=== PATIENT | male | born 1940 | race Caucasian/White ===

== ENCOUNTER 2017-09-01 08:40 | Day surgery (SDC) | payer MEDICARE, SELFPAY ==
--- NOTE | 2017-09-01 | PATH_ITS ---
[facility] Accession Number: [id number] . 01 Material submitted: . CECUM POLYP . 02 Diagnosis: Cecal Polyp: Tubular adenoma. MRV/09/06/2017 . 02 Electronically signed: . Sai Parker MD, PhD, Pathologist NPI- [id number] . 01 Gross description: . CECUM POLYP: Received in formalin is 1 fragment(s) of avalos, soft tissue measuring 0.4 x 0.3 x 0.2 cm submitted entirely in 1 cassette(s) /TRC /TRC . 02 Pathologist provided ICD-10: D12.0 . 02 CPT . 370276 Performed at: 01 [facility] [address], [place], [place] [id number] MD Yordan Carson MD Phone: [phone] Performed at: 02 [facility] [address] [employer] [place] [employer], [place] [id number] MD Ray Mcneal MD Phone: [phone]
[2017-09-01 09:09] VITALS: BP 137/90; PULSE 76; RESP 16; TEMP 36.6; O2SAT 100; BMI 23.7
[2017-09-01] MEDS: SODIUM CHLORIDE 0.9% 1,000 ML 200 ML IV (09:17)
--- NOTE | 2017-09-01 10:22 | P.HP_ITS ---
History of Present Illness Chief complaint: 90903 SCREENING COLONOSCOPY Narrative: Kwame Dowling is a 77 year old male who presents for screening colonoscopy. His last colonoscopy was 5 years ago and he and his both report that he had polyps removed at that time. He denies any problems or symptoms related to the function of the GI tract. He reports that he and his live half the year is on now and half the year here and his weight is usually stable. He just returned from a cruise through the [facility] a reports he gained 7 lb on a cruise but quickly lost once he returned. Patient History Family & Social History Family History: Reviewed 09/01/17 by Hyun Shah MD Meds Home Medications Medication Instructions Recorded Confirmed Type Doxazosin Mesylate (DOXAZOSIN) 4 mg PO QDAY #0 09/22/11 History levothyroxine [Synthroid] 0.05 mg PO QDAY #0 09/22/11 History ACETAMINOPHEN (#TYLENOL) 500 mg PO PRN #0 09/27/11 History [AMBIEN] 10 mg PO PRN #0 09/27/11 History [FLUTICASONE PROPIONA] 50 mcg PO QDAY #0 09/27/11 History atorvastatin [Lipitor] 10 mg PO HS #0 09/27/11 History aspirin 81 mg PO DAILY 09/01/17 09/01/17 History metoprolol succinate 25 mg PO DAILY 09/01/17 09/01/17 History Allergies Allergy/AdvReac Type Severity Reaction Status Date / Time No Known Drug Allergies Allergy Verified 09/01/17 09:03 Review of Systems Review of Systems All systems reviewed & are unremarkable except as noted in HPI and below Exam Vital Signs (past 8 hours): Vital Signs - 8 hr 3 09/01/17 09:09 Temperature 97.8 F Pulse Rate 76 Respiratory Rate 16 Blood Pressure 137/90 H Pulse Oximetry 100 Pulse Oximetry 100 Oxygen Delivery Method Room Air Narrative Exam Narrative: Very pleasant gentleman in no distress HEENT: Normocephalic and atraumatic, pupils equal round reactive to light accommodation with anicteric sclerae Lungs: Clear to auscultation bilaterally Heart: Regular rate and rhythm without murmur Abdomen: Soft, nontender, active bowel sounds Extremities warm and well perfused. Assessment & Plan Plan: Plan: Very pleasant in generally healthy gentleman here for a screening colonoscopy. We discussed the risks and benefits of the procedure the patient has expressed desire to continue
--- NOTE | 2017-09-01 10:54 | PM.OP.1 ---
Operative Date/Time/Diagnoses - Date of procedure: 09/01/17 Time of procedure: 10:54 Pre-op diagnosis: Personal history of colon polyps Screening colonoscopy Post-op diagnosis: same Procedure & Clinicians Procedure: Screening colonoscopy Same procedure as scheduled: Yes Indications: Last colonoscopy 5 years ago. Benign polyps were found Surgeon: Hyun Shah Click Yes if Unassisted: Yes Anesthesia Type: Sedation (Versed 7 mg; fentanyl 250 mcg) Operative Notes Findings: 1. Excellent prep 2. A single 2-3 mm sessile polyp at the cecum-removed with cold forceps and submitted for pathology 3. Profound diverticulosis with large and small tics and false passages extending from 20 cm to the splenic flexure-most concentrated disease at the junction of the descending sigmoid colon 4. Otherwise normal mucosa 5. Grade 1 internal hemorrhoid Closure Type: not applicable Specimen(s): none sent Tourniquet time (min): 1 Procedure in detail: After obtaining informed consent, the patient was brought to the GI suite and placed in the left lateral decubitus position on the examination table. After placement of appropriate monitors, the patient was given incremental doses of Versed and Fentanyl until an appropriate level of sedation was achieved. A time out was held per SCOAP protocol. A digital rectal examination was performed and did not reveal any masses or obstructing lesions. The colonoscope was gently passed into the patient's anus and the entire colon navigated to the level of the cecum with minimal difficulty. Once in the cecum, the scope was withdrawn being sure to go before and beyond all mucosal folds and prominences and get an excellent examination. The findings are noted above. At the level of the rectal vault, the scope was retroflexed and the internal anal canal was examined. The scope was straightened and air aspirated from the colon. The instrument was removed from the patient's body and the procedure was concluded. The patient was allowed to awaken from sedation without difficulty and taken to the post-anesthesia care unit in good condition. Total sedation time 21 min Total withdrawal time 11 min Complications: none Condition: stable Disposition: PACU Plan for aftercare: 1. Discharge to home 2. Plan for next colonoscopy in 5 years or as clinically indicated
[2017-09-01] MEDS: fentaNYL 250 MCG/5 ML INJ IV (10:57)
[2017-09-01] MEDS: MIDAZOLAM 5 MG/5 ML VIAL IV (10:57)
[2017-09-01 11:01] VITALS: BP 133/91; PULSE 73; RESP 12; TEMP 36.6; O2SAT 95
[2017-09-01 11:06] VITALS: BP 123/92; PULSE 78; RESP 14; O2SAT 95
[2017-09-01 11:11] VITALS: BP 128/98; PULSE 80; RESP 15; O2SAT 94
[2017-09-01 11:12] VITALS: TEMP 37.1
[2017-09-01 11:21] VITALS: BP 135/96; PULSE 76; RESP 16; TEMP 36.3; O2SAT 98
== END 2017-09-01 11:34 | disposition home or self-care (01) ==
PROVIDERS: Family Provider Internal Medicine; PCP Internal Medicine; Visit Provider Surgery
PROC: 0DJD8ZZ Inspection of Lower Intestinal Tract, Via Natural or Artificial Opening Endoscopic (ICD-10-PCS; CPT 45378; principal; 2017-09-01 09:45)
DX: Z12.11 Encounter for screening for malignant neoplasm of colon (principal); K57.30 Diverticulosis of large intestine without perforation or abscess without bleeding; K64.0 First degree hemorrhoids; Z86.010 Personal history of colon polyps; D12.0 Benign neoplasm of cecum
CPT/HCPCS: 45380; 88305; 99152; J2250; J3010

== ENCOUNTER → 2017-12-02 10:59 | Outpatient (CLI) | payer MEDICARE, SELFPAY ==
[2017-12-02 12:59] LABS: Prostate Specific Antigen 0.224 ng/mL (0.10-4.00)
[2017-12-02 13:01] LABS: Testosterone 14.8 ng/dL (71.8-623)
== END ==
PROVIDERS: PCP Internal Medicine; Visit Provider Urology
DX: C61 Malignant neoplasm of prostate (principal)
CPT/HCPCS: 36415; 84153; 84403

== ENCOUNTER → 2018-07-04 10:47 | Outpatient (CLI) | payer MEDICARE, SELFPAY ==
[2018-07-04 12:44] LABS: Prostate Specific Antigen 0.416 ng/mL (0.10-4.00)
== END ==
PROVIDERS: Family Provider Internal Medicine; Visit Provider Urology
DX: C61 Malignant neoplasm of prostate (principal)
CPT/HCPCS: 36415; 84153; 84403

== ENCOUNTER → 2018-07-17 09:53 | Outpatient (CLI) | payer MEDICARE, SELFPAY ==
[2018-07-17 11:14] LABS: Alanine Aminotransferase 30 IU/L (21-72); Aspartate Aminotransferase 26 IU/L (17-59); BUN Creatinine Ratio 17.8 (6-22); Blood Urea Nitrogen 16 mg/dL (9-20); Calcium 9.3 mg/dL (8.4-10.2); Carbon Dioxide 25 mmol/L (22-32); Chloride 104 mmol/L (98-107); Cholesterol 131 mg/dL (140-199); Estimated Glomerular Filt Rate > 60.0 mL/min (>60); Glucose 105 mg/dL (80-110); HDL Cholesterol 39 mg/dL (40-60); HEMOLYSIS < 15 (0-50); LDL Cholesterol Calculated 74 mg/dL (<100); Potassium 4.4 mmol/L (3.4-5.1); Sodium 136 mmol/L (137-145); Triglycerides 89 mg/dL (35-150)
[2018-07-17 12:36] LABS: TSH w/ Reflex to FT4 0.73 uIU/mL (0.47-4.68)
== END ==
PROVIDERS: Visit Provider Internal Medicine
DX: E03.9 Hypothyroidism, unspecified (principal); E78.00 Pure hypercholesterolemia, unspecified; I10 Essential (primary) hypertension
CPT/HCPCS: 36415; 80048; 80061; 84443; 84450; 84460

== ENCOUNTER → 2018-12-20 12:58 | Outpatient (CLI) | payer MEDICARE, SELFPAY ==
[2018-12-20 14:20] LABS: Prostate Specific Antigen 0.546 ng/mL (0.10-4.00)
== END ==
PROVIDERS: Visit Provider Urology
DX: C61 Malignant neoplasm of prostate (principal); Z90.79 Acquired absence of other genital organ(s); Z92.3 Personal history of irradiation; R39.198 Other difficulties with micturition
CPT/HCPCS: 36415; 84153

== ENCOUNTER → 2019-07-02 09:48 | Outpatient (CLI) | payer MEDICARE, SELFPAY ==
[2019-07-02 11:19] LABS: Prostate Specific Antigen 0.656 ng/mL (0.10-4.00)
== END ==
PROVIDERS: PCP Internal Medicine; Referring Provider Urology; Visit Provider Urology
DX: C61 Malignant neoplasm of prostate (principal)
CPT/HCPCS: 36415; 84153

== ENCOUNTER → 2019-09-28 07:31 | Outpatient (CLI) | payer MEDICARE, SELFPAY ==
[2019-09-28 08:37] LABS: Alanine Aminotransferase 16 IU/L (<50); Albumin 3.8 g/dL (3.5-5.0); Albumin Globulin Ratio 1.4 (1.0-2.8); Alkaline Phosphatase 68 U/L (38-126); Aspartate Aminotransferase 24 IU/L (17-59); BUN Creatinine Ratio 22.5 (6-22); Bilirubin Total 0.8 mg/dL (0.2-1.3); Blood Urea Nitrogen 20 mg/dL (9-20); Calcium 9.4 mg/dL (8.4-10.2); Carbon Dioxide 27 mmol/L (22-32); Chloride 108 mmol/L (98-107); Cholesterol 148 mg/dL (140-199); Estimated Glomerular Filt Rate > 60.0 mL/min (>60); Globulin 2.7 g/dL (1.7-4.1); Glucose 119 mg/dL (80-110); HDL Cholesterol 40 mg/dL (40-60); HEMOLYSIS < 15 (0-50); LDL Cholesterol Calculated 87 mg/dL (<100); Sodium 139 mmol/L (137-145); Total Protein 6.5 g/dL (6.3-8.2); Triglycerides 107 mg/dL (35-150)
[2019-09-28 09:09] LABS: TSH w/ Reflex to FT4 1.06 uIU/mL (0.47-4.68)
== END ==
PROVIDERS: PCP Internal Medicine; Referring Provider Internal Medicine; Visit Provider Internal Medicine
DX: I10 Essential (primary) hypertension (principal); E78.00 Pure hypercholesterolemia, unspecified
CPT/HCPCS: 36415; 80053; 80061; 84443

== ENCOUNTER → 2019-12-28 10:43 | Outpatient (CLI) | payer MEDICARE, SELFPAY | PROVIDERS: PCP Internal Medicine; Referring Provider Urology; Visit Provider Urology | DX: C61 Malignant neoplasm of prostate (principal) | CPT/HCPCS: 36415; 84153 ==

== ENCOUNTER → 2020-01-02 08:34 | Outpatient (CLI) | payer MEDICARE, SELFPAY ==
--- NOTE | 2020-01-02 08:38 | DI.RAD.S_ITS ---
PROCEDURE: XR LUMBAR SPINE 2-3V INDICATIONS: RIGHT SIDED LOW BACK PAIN W/O SCIATICA TECHNIQUE: 3 views of the lumbar spine were acquired. COMPARISON: [facility], , CHEST 2 VIEW, 09/10/2011, 10:40. FINDINGS: Bones: 5 dow-agl-[id number] vertebrae are present. There is trace retrolisthesis of L1 on L2, L2 on L3, L3 on L4, L5 on S1. Anterior wedge deformity appearing chronic measuring approximately 50% is present at L1, unchanged. Bridging T12-L1 anterior osteophytes are present. Severe disc and foraminal narrowing is noted at L5-S1, severe foraminal narrowing is noted at L1-L2, L2-3, moderate L4-5. No suspicious bony lesions. Soft tissues: Overlying bowel gas pattern is normal. No suspicious soft tissue calcifications. IMPRESSION: Multilevel degenerative changes as above. Dictated by: Corine Torres M.D. on 01/02/2020 at 15:05 Approved by: Corine Torres M.D. on 01/02/2020 at 15:09
== END ==
PROVIDERS: PCP Internal Medicine; Referring Provider Internal Medicine; Visit Provider Internal Medicine
DX: M54.5 Low back pain (principal); M47.816 Spondylosis without myelopathy or radiculopathy, lumbar region
CPT/HCPCS: 72100

== ENCOUNTER → 2020-01-21 13:52 | Outpatient (CLI) | payer MEDICARE, SELFPAY ==
[2020-01-22 10:24] LABS: COVID19 Sendout Not Detected (Not Detect)
== END ==
PROVIDERS: PCP Internal Medicine; Visit Provider Physician Assistant
DX: Z11.59 Encounter for screening for other viral diseases (principal)
CPT/HCPCS: 87635

== ENCOUNTER → 2020-07-11 10:11 | Outpatient (CLI) | payer MEDICARE, SELFPAY ==
[2020-07-11 12:22] LABS: Prostate Specific Antigen 4.36 ng/mL (0.10-4.00)
== END ==
PROVIDERS: PCP Internal Medicine; Referring Provider Urology; Visit Provider Urology
DX: C61 Malignant neoplasm of prostate (principal)
CPT/HCPCS: 36415; 84153

== ENCOUNTER → 2020-07-18 10:25 | Outpatient (CLI) | payer MEDICARE, SELFPAY ==
[2020-07-18 11:17] LABS: BUN Creatinine Ratio 14.7 (6-22); Blood Urea Nitrogen 14 mg/dL (9-20); Estimated Glomerular Filt Rate > 60.0 mL/min (>60)
== END ==
PROVIDERS: PCP Internal Medicine; Referring Provider Urology; Visit Provider Urology
DX: C61 Malignant neoplasm of prostate (principal)
CPT/HCPCS: 36415; 82565; 84520

== ENCOUNTER → 2020-07-21 08:58 | Outpatient (CLI) | payer MEDICARE, SELFPAY ==
--- NOTE | 2020-07-21 | DI.CT.S_ITS ---
PROCEDURE: CT CHEST ABD PEL W CON INDICATIONS: Prostate cancer TECHNIQUE: After the administration of oral and intravenous contrast, 5 mm thick sections acquired from the lung apices to the symphysis. 5 mm coronal and sagittal reformats were performed, with additional 7 mm coronal MIP reformats through the lungs. For radiation dose reduction, the following was used: automated exposure control, adjustment of mA and/or kV according to patient size. COMPARISON: [facility], CR, CHEST 2 VIEW, 09/10/2011, 10:40. [facility], MR, PELVIS W&WO CONTRAST, 07/31/2014, 18:53. FINDINGS: CHEST: Lungs: Upper lobe predominant emphysema noted. Multiple bilateral pulmonary nodules, subcentimeter in size including 3 mm nodule seen in the left lung base on image 268/2, 6 mm nodule seen in the right upper lobe image 115/2 5 mm nodule seen within the left upper lobe image 152/2, Please see the montage image for detailed locations and image/series numbers. Scattered subsegmental atelectasis and/or scarring. No focal consolidation. Airway thickening in keeping with nonspecific bronchitis and/or reactive airways disease. Pleura: No pleural effusions or pneumothorax. Airway thickening in keeping with nonspecific bronchitis and/or reactive airways disease. Mediastinum: Heart size is normal. Coronary artery calcifications are present. No pericardial effusion. Lymph nodes: Normal. Thyroid gland: Large hypodense nodule involving the left lobe of the thyroid which measures 4.2 x 3.6 cm, better assessed with dedicated ultrasound if clinically warranted. Mild enlargement of the ascending thoracic aorta measuring approximately 3.8 cm, and there are scattered vascular calcifications. Pulmonary arteries: Normal. Esophagus: Normal.. ABDOMEN: Solid organs: Hepatic steatosis. Gallbladder: Negative. Bile ducts: Normal Pancreas: Normal Spleen: Normal Adrenal glands: Normal No hydronephrosis. Bilateral renal cysts with grossly simple appearance measuring up to 6 cm in diameter on image 74/4 and up to 2.2 cm on the left image 84/4. The ureters appear decompressed. Peritoneum and bowel: Stomach: Normal Bowel: Normal No free fluid or air. Colonic diverticulosis is seen without evidence of acute complication. Abdominal nodes: Normal Aorta and IVC: Normal in size. Ventral wall: Normal PELVIS: Genitourinary: Increased intraluminal attenuation is present in the bladder which is moderately distended. There is a layering dependent appearance. Prostate surgically absent. Few shotty pelvic lymph nodes, including 5 mm left external iliac lymph node on image 104/4. Inguinal: Normal Spondylytic changes and facet arthropathy. L1 mild compression fracture which appears chronic. Nonspecific subcentimeter focal sclerosis involving the left sacral ala image 100/4. IMPRESSION: Multiple bilateral subcentimeter pulmonary nodules as detailed above. Recommend continued close surveillance to exclude early pulmonary metastases given the absence of prior studies. Prominent increased attenuation seen within the bladder, with layering dependent appearance. This could represent blood products although cannot entirely exclude mass or underlying neoplasm. Please correlate clinically and with cystoscopic findings as necessary. Additional chronic and incidental findings as above. Dictated by: Micky Velasquez M.D. on 07/21/2020 at 11:28 Approved by: Micky Velasquez M.D. on 07/21/2020 at 12:11
== END ==
PROVIDERS: PCP Internal Medicine; Referring Provider Urology; Visit Provider Urology
DX: C61 Malignant neoplasm of prostate (principal); R91.8 Other nonspecific abnormal finding of lung field; J43.9 Emphysema, unspecified; E04.1 Nontoxic single thyroid nodule; I77.89 Other specified disorders of arteries and arterioles; K76.0 Fatty (change of) liver, not elsewhere classified; N28.1 Cyst of kidney, acquired; K57.90 Diverticulosis of intestine, part unspecified, without perforation or abscess without bleeding
CPT/HCPCS: 71260; 74177; Q9967

== ENCOUNTER → 2020-07-23 09:42 | Outpatient (CLI) | payer MEDICARE, SELFPAY ==
--- NOTE | 2020-07-23 09:46 | DI.NM.S_ITS ---
PROCEDURE: PR BONE SCAN WHOLE BODY RADIOPHARMACEUTICAL: 21.1 mCi Tc-99m MDP IV. INDICATIONS: Prostate cancer TECHNIQUE: Delayed whole-body scintigrams were obtained approximately 3-4 hours after intravenous injection of radiotracer. Anterior and posterior views were acquired from vertex to feet. Additional left and right oblique views of the pelvis were obtained. COMPARISON: [facility], PR, BONE SCAN WHOLE BODY, 12/21/2006, 9:27. [facility], CT, CT CHEST ABD PEL W CON, 07/21/2020, 9:55. FINDINGS: No lesions are identified in skull, sternum, clavicles, scapulae, ribs, bony pelvis, and visualized shafts of the long bones. There is low level increased uptake in cervical, thoracic and lumbar spine with distribution indistinguishable from degenerative disc and facet disease; early metastasis to spine could be obscured by degenerative changes. There are foci of increased periarticular activity involving shoulders, knees, left ankle and foot, compatible with degenerative/arthritic changes. Uptake in the right knee is more intense at new since 2006. IMPRESSION: 1. No definitive scintigraphic findings to suggest osseous metastasis. 2. Foci of increased periarticular activity in shoulders, knees, left ankle and foot are most likely degenerative in nature. Uptake in right knee is more intense and new since the last bone scan. Recommend radiographic correlation. Dictated by: Bayron Constantino M.D. on 07/23/2020 at 13:40 Approved by: Bayron Constantino M.D. on 07/23/2020 at 15:26
== END ==
PROVIDERS: PCP Internal Medicine; Referring Provider Urology; Visit Provider Urology
DX: C61 Malignant neoplasm of prostate (principal)
CPT/HCPCS: 78306; A9503

== ENCOUNTER → 2020-08-01 10:54 | Outpatient (CLI) | payer MEDICARE, SELFPAY ==
[2020-08-01 12:49] LABS: Alanine Aminotransferase 33 IU/L (<50); Albumin 4.1 g/dL (3.5-5.0); Albumin Globulin Ratio 1.4 (1.0-2.8); Alkaline Phosphatase 93 U/L (38-126); Aspartate Aminotransferase 39 IU/L (17-59); BUN Creatinine Ratio 21.1 (6-22); Bilirubin Total 0.7 mg/dL (0.2-1.3); Blood Urea Nitrogen 20 mg/dL (9-20); Calcium 9.7 mg/dL (8.4-10.2); Carbon Dioxide 27 mmol/L (22-32); Chloride 105 mmol/L (98-107); Cholesterol 158 mg/dL (140-199); Estimated Glomerular Filt Rate > 60.0 mL/min (>60); Globulin 2.9 g/dL (1.7-4.1); Glucose 108 mg/dL (80-110); HDL Cholesterol 46 mg/dL (40-60); HEMOLYSIS < 15 (0-50); LDL Cholesterol Calculated 85 mg/dL (<100); Potassium 4.3 mmol/L (3.4-5.1); Sodium 140 mmol/L (137-145); Triglycerides 135 mg/dL (35-150)
[2020-08-01 13:19] LABS: TSH w/ Reflex to FT4 0.56 uIU/mL (0.47-4.68)
== END ==
PROVIDERS: PCP Internal Medicine; Referring Provider Internal Medicine; Visit Provider Internal Medicine
DX: I10 Essential (primary) hypertension (principal); E03.9 Hypothyroidism, unspecified; E78.00 Pure hypercholesterolemia, unspecified
CPT/HCPCS: 36415; 80053; 80061; 84443

== ENCOUNTER → 2020-08-05 08:57 | Outpatient (CLI) | payer MEDICARE, SELFPAY ==
--- OUTSIDE RECORDS SUMMARY | 2020-08-04 12:17 | XMS_ITS | Referral Summary ---
:[address] [facility] Address [address] [place] [address] Care Team Providers Name Role Phone Emily Barry Primary Care Provider Reason for Referral Consultation (Routine) Status Reason Specialty Diagnoses / Referred By Referred To Procedures Contact Contact Authorized Specialty Oncology Diagnoses Prostate cancer (CMS/HCC) [facility] Services Required Nasima Montes MD [address] [place] [address] [place], [place] [address] [address] [place], Phone: [facility] Scheduling Instructions [facility] Electronically signed by Nasima Otoole MD at Reason for Visit Reason Onset Date Comments Test Results 07/28/2020 Encounter Details Date Type Department Care Team Description 07/28/[address] [facility] Nasima Casas MD Test Results Urology [place] [address] [address] [facility] [address] [place] [address] [place], [place] [phone] Allergies No Known Active Allergiesdocumented as of this encounter (statuses as of 07/29/2020) Medications Medication Sig Dispensed Refills Start Date End Date Status atorvastatin (LIPITOR) 0 07/31/2012 Active 10 mg tablet metoprolol tartrate 50 mg 0 Active (LOPRESSOR) 25 mg tablet levothyroxine 0 Active (SYNTHROID) 125 mcg tablet traZODone (DESYREL) 50 as needed. 5 12/30/2016 Active mg tablet aspirin 81 mg EC tablet daily 0 Active zolpidem (AMBIEN) 10 mg daily 0.5 tab 0 5 Active tablet NEEDED leuprolide acetate as directed 0 Active (LUPRON DEPOT IM) documented as of this encounter (statuses as of 07/29/2020) Active Problems Problem Noted Date Microscopic hematuria 01/09/2018 Lower urinary tract symptoms (LUTS) 07/20/2017 History of radical retropubic prostatectomy 01/12/2017 History of external beam radiation therapy 01/12/2017 Erectile dysfunction 07/22/2015 Prostate cancer 08/16/2011 documented as of this encounter (statuses as of 07/29/2020) Resolved Problems Problem Noted Date Resolved Date Nocturia 01/12/2017 07/20/2017 documented as of this encounter (statuses as of 07/29/2020) Immunizations Name Administration Dates Next Due FLU High Dose 65+ (Fluzone) 12/13/2017, 12/17/2016, 12/13/19 11 Influenza, Quadrivalent 12/25/2012, 12/31/2009, 12/23/2008, 01/04/2008, 01/17/2007, 01/19/2006 Influenza, Seasonal, Injectable 12/20/2015, 12/07/2014, 05/2013 Live Zoster (Zostavax) 01/10/2008 Pneumococcal, Unspecified 01/21/2014 Recombinant Zoster (Shingrix) 10/06/2017, 07/10/2017 TD Preservative Free (Generic) 07/30/2004 Tdap (Boostrix,Adacel) 07/13/2010 documented as of this encounter Social History Tobacco Use Types Packs/Day Years Used Date Former Smoker Cigarettes 0.5 30 Quit: 2004 Smokeless Tobacco: Former User Alcohol Use Drinks/Week oz/Week Comments Yes wine 2x year Alcohol Habits Answer Date Recorded How often do you have a drink containing alcohol? Monthly or less 01/08/2019 How many drinks containing alcohol do you have on a 1 or 2 01/08/2019 typical day when you are drinking? How often do you have six or more drinks on one Never 01/08/2019 occasion? Sex Assigned at Date Recorded Not on file Job Start Date Occupation Industry Not on file Not on file Not on file documented as of this encounter Miscellaneous Notes Telephone Encounter - CharlyAlexandria - 07/29/2020 5:01 PM PDTSummary: Referral faxed to [facility] The referral has been faxed to [facility] at [phone] signed by Alexandria Gricelda Charly at 07/29/2020 5:02 PM PDT Telephone Encounter - Patsy Corey - 07/29/2020 4:00 PM PDTPatients spouse called statng she contacted cancer care center at [facility] and they have not yet received the referral from our office. Confirmed she just spoke with our office regarding this 20minutes prior, and this would be faxed as soon as we have a chance. She provided their fax number [phone]. ddendum Note - Rut Smith RN - 07/29/2020 3:31 PM PDT Addended by: RUT SMITH on: 07/29/2020 03:31 PM Modules accepted: Orders elephone Encounter - Rtu Smith RN - 07/29/2020 3:30 PM PDTCalled patient and his back- ok per auth to share. Let them know the results of the CT scan andDr. Otoole's recommendations. They would like [place] go to [place]ology [place]. Referral placed. Changed office visit appointment on 08/11 to a cystoscopy. All questions answered. elephone Encounter - Farzaneh Burr - 07/29/2020 2:40 PM PDTRhonda called back and they are home all day. [phone] signed by Farzaneh Burr at 07/29/2020 2:41 PM PDTTelephone Encounter - Rut Smith RN - 07/29/2020 1:30 PM PDTLeft message to call back. elephone Encounter - Rut Smith RN - 07/29/2020 1:19 PM PDTHi Niesha, ?? Please, let him know I've reviewed his CT images and the report. ?? He has a mass on his thyroid, small lung nodules, visible pelvic lymph nodes--I'd like him referred to medical oncology. ?? The bladder findings appear likely consistent with swirling of contrast dye in the urine, though I do recommend cystoscopy to ensure the bladder is normal. ?? Thank you, Sandra Telephone Encounter - Estevan Mata - 07/28/2020 10:42 AM PDTPatients called asked that they be called with results from patients CT and Bone Scan. Said they would like them before patients appointment on 08/11/20 because they are trying to make plans for there grandsons graduation but would like the results first. documented in this encounter Plan of Treatment Upcoming Encounters Date Type Specialty Care Team Description 08/11/2020 Office Visit Urology Micaela Otoole MD [address] [place] [address] [phone] Scheduled Referrals Name Type Priority Associated Diagnoses Order S chejennifer XTRNL Referral to Outpatient Referral Routine Prostate cancer Ordered: Oncology (CMS/HCC) 07/29/2020 documented as of this encounter Visit Diagnoses Diagnosis Prostate cancer (CMS/HCC) - Primary Malignant neoplasm of prostate documented in this encounter Insurance Payer Benefit Plan / Subscriber ID Effective Dates Phone Addre ss Type Group MEDICARE MEDICARE PART A [id number] 2005-Present AND B [facility] SUPP [id number] 2017-Present SUPP documented as of this encounter Advance Directives Documents on File Type Date Recorded Patient Strain Technician Explanati on Advance Directives and Living Will
--- NOTE | 2020-08-05 08:58 | DI.US.S_ITS ---
PROCEDURE: US THYROID COMPARISON: [facility], [place], [place] BONE SCAN WHOLE BODY, 07/23/2020, 12:40. [facility], CT, CT CHEST ABD PEL W CON, 07/21/2020, 9:55. [facility], [place], THYROID, 07/31/2010, 12:24. INDICATIONS: LEFT THYROID NODULE FINDINGS: The right thyroid lobe measures 1.2 x 1.1 x 4.5 cm, normal. The left thyroid lobe is enlarged by a dominant mass, measuring overall 3.2 x 4.1 x 6.2 cm. The mass present on the left has been seen on prior CT scanning and measures up to 2.5 x 4.2 x 5.2 cm. There is also a small right isthmus nodule measuring 2 x 3 x 6 mm. The right isthmus nodule was analyzed and yields 3 points for categorization, and given small size no additional follow-up is recommended. Ti-Rads 3 category. The large left thyroid nodule was analyzed, and yields 3 points for categorization, and given large size FNA biopsy is recommended. Ti-Rads 3 category. IMPRESSION: The large left thyroid nodule should be biopsied using FNA technique. The small right isthmus nodule requires no biopsy or followup. Dictated by: Thanh Moreno M.D. on 08/05/2020 at 10:47 Approved by: Thanh Moreno M.D. on 08/05/2020 at 10:57
== END ==
PROVIDERS: PCP Internal Medicine; Referring Provider Internal Medicine Hematology & Oncology; Visit Provider Internal Medicine Hematology & Oncology
DX: C61 Malignant neoplasm of prostate (principal); E07.9 Disorder of thyroid, unspecified; E04.1 Nontoxic single thyroid nodule
CPT/HCPCS: 76536

== ENCOUNTER → 2020-08-19 12:51 | Outpatient (CLI) | payer MEDICARE, SELFPAY ==
--- NOTE | 2020-08-19 | PATH_ITS ---
Note [facility] Accession Number: [id number] TESTS RESULT FLAG UNITS REF RANGE LAB Clinician Provided Cytology Information No. of containers..02 Previously Prepared Cytology Slide 35 Unknown Storage/container code(s) LEFT THYROID NODULE DIAGNOSIS: LEFT THYROID NODULE INCONCLUSIVE. BETHES[place] CATEGORY III. ATYPIA OF UNDETERMINED SIGNIFICANCE. COMMENT: The specimen is of moderate cellularity with macrofollicular groups exhibiting atypia in the form of nuclear overlap, slight nuclear irregularity with grooves, and slightly open chromatin. Pathologist ICD10: 01 R89.6 Iva Dominguez MD, Pathologist NPI- [id number] Papi [place], [employer] ([facility]) 01 30 CC, PINK, CLEAR RECIEVED: IN CYTOLYT WITH 6 ALCOHOL FIXED AND 6 QUICK STAINED SLIDES ALSO 1 RNA VIAL WAS RECEIVED FOR FURTHER TESTING. /VDMadhuri 08/20/2020 0550 [facility] FLAG LEGEND: L-Low Normal,H-High Normal,LL-Alert Low,HH-Alert High <-Panic Low,>-Panic High,A-Abnormal,AA-Critical Abnormal Performed at: 01 =Z [facility] [address], [place] [address] Yordan Carson MD, Performed at: 01 [facility] [address], [place], [place] [id number] MD Yordan Carson MD Phone: [phone]
--- NOTE | 2020-08-19 12:53 | DI.US.S_ITS ---
PROCEDURE: US FINE NEEDLE ASPIRATION INDICATIONS: NODULE TECHNIQUE: The indications, alternatives, benefits, risks, and complications of the procedure were explained to the patient. Written informed consent was obtained and placed in the chart. The thyroid region was examined sonographically and a site was chosen for ultrasound guided percutaneous sampling. The skin was prepared and draped in the usual fashion, and anesthetized with 1% lidocaine infiltrated from the skin down to the thyroid gland. Multiple passes were then performed, with contents emptied into an appropriate pathology specimen container. A bandage was applied to the area of access at completion of the study. COMPARISON: None. FINDINGS: Location(s) of lesion(s) sampled: Left lobe [place]: 25 gauge hypodermic needles. Number of passes: 6 Medications: 1% lidocaine for local anaesthesia. Complications: None. IMPRESSION: Successful ultrasound-guided thyroid nodule fine needle aspiration, with cytology results pending. Please see chart below for management recommendations based on cytology results. [facility] ReportingRecommendationsNon-diagnostic* Repeat US-guided FNA, with on-site cytology evaluation if possible. * Repeated non-diagnostic nodules without high suspicion US features: close observation vs surgical consult. * Consider surgery if nodule has high suspicion US features, grows >20% in 2 dimensions on followup, or patient has clinical risk factors for malignancy. Benign* If nodule has high suspicion US features: repeat US and FNA within 12 months. * If nodule has low to intermediate suspicion US features: repeat US at 12-24 months. If nodule grows (20% increase in at least 2 dimensions, with minimal increase of 2 mm or >50% change in volume), or development of new suspicious US features, then repeat FNA or continue followup. * If nodule has very low suspicion US features: followup US at >24 months. Atypia of undetermined significance, follicular lesion of undetermined significanceRepeat FNA, molecular testing, followup US, or surgical consult.Follicular neoplasm, suspicious for follicular neoplasmSurgical consult; also consider molecular testing. Suspicious for malignancySurgical consult.MalignantSurgical consult. Dictated by: Micky Velasquez M.D. on 08/19/2020 at 17:45 Approved by: Micky Velasquez M.D. on 08/19/2020 at 17:45
== END ==
PROVIDERS: PCP Internal Medicine; Referring Provider Internal Medicine Hematology & Oncology; Visit Provider Internal Medicine Hematology & Oncology
DX: E04.1 Nontoxic single thyroid nodule (principal)
CPT/HCPCS: 10005

== ENCOUNTER → 2020-08-21 15:38 | Outpatient (CLI) | payer MEDICARE, SELFPAY ==
--- NOTE | 2020-08-21 15:42 | DI.RAD.S_ITS ---
PROCEDURE: XR CHEST 2V INDICATIONS: Fell striking left chest.Point tender lateral lower rib cage TECHNIQUE: 2 views of the chest were acquired. COMPARISON: [facility], , CHEST 2 VIEW, 09/10/2011, 10:40. FINDINGS: Surgical changes and devices: None. Lungs and pleura: Lungs are clear. No pleural effusions or pneumothorax. Mediastinum: Mediastinal contours are normal. Heart size is normal. Bones and chest wall: No suspicious bony abnormalities. Soft tissues appear unremarkable. IMPRESSION: No acute cardiopulmonary abnormality Dictated by: Rishabh Tyler M.D. on 08/21/2020 at 16:09 Approved by: Rishabh Tyler M.D. on 08/21/2020 at 16:10
--- NOTE | 2020-08-21 15:42 | DI.RAD.S_ITS ---
PROCEDURE: XR RIBS LT 2V INDICATIONS: Fell striking left chest.Point tender lateral lower rib cage TECHNIQUE: PA of the chest and two views of the left ribs were acquired. COMPARISON: None. FINDINGS: Surgical changes and devices: None. Bones and chest wall: No fractures or dislocations. No suspicious bony lesions. Overlying soft tissues appear unremarkable. Lungs and pleura: The visualized lung appears clear. No pleural effusions or pneumothorax are visible. The aorta is tortuous. IMPRESSION: 1. No acute cardiopulmonary abnormality. 2. No left-sided rib fracture. Dictated by: Rishabh Tyler M.D. on 08/21/2020 at 16:10 Approved by: Rishabh Tyler M.D. on 08/21/2020 at 16:12
== END ==
PROVIDERS: PCP Internal Medicine; Referring Provider Specialist; Visit Provider Specialist
DX: S29.8XXA Other specified injuries of thorax, initial encounter (principal); W19.XXXA Unspecified fall, initial encounter; E07.9 Disorder of thyroid, unspecified
CPT/HCPCS: 71046; 71100; 99214

== ENCOUNTER → 2020-09-02 10:49 | Outpatient (CLI) | payer MEDICARE, SELFPAY ==
[2020-09-02 12:04] LABS: COVID19 -Nasal RAPID Negative (Negative)
== END ==
PROVIDERS: PCP Internal Medicine; Visit Provider Specialist
DX: Z20.822 Contact with and (suspected) exposure to COVID-19 (principal)
CPT/HCPCS: 87635; C9803

== ENCOUNTER 2020-09-03 13:07 | Day surgery (SDC) | payer MEDICARE, SELFPAY ==
[2020-09-03] VITALS (16 sets, daily range): BP systolic 131–163; BP diastolic 84–111; PULSE 66–96; RESP 12–16; TEMP 36.2–36.6; O2SAT 94–100; BMI 25.0
--- NOTE | 2020-09-03 | PATH_ITS ---
[facility] Accession Number: [id number] . 01 Material submitted: . thyroid gland - LEFT THYROID LOBE AND PORTION OF ISTHMUS . 01 Clinical history: . LEFT THYROID LOBECTOMY/ISTHMUECTOMY . 02 Diagnosis: Left Thyroid and Isthmus, Left Hemithyroidectomy: Most consistent with benign adenomatoid nodule with post procedural changes, including cystic degeneration. Foci of chronic inflammation, suggestive of lymphocytic (Rowan's) thyroiditis. No evidence of malignancy. [facility] 09/10/2020 1551 Local . 02 Comment: As part of routine lead quality technician, Dr. Cohen has reviewed this case and agrees that there is no evidence of malignancy. . 02 Electronically signed: . Sai Parker MD, PhD, Pathologist NPI- [id number] . 01 Gross description: . The specimen is received in formalin, labeled left thyroid lobe and portion of isthmus and consists of an 18-gram unoriented portion of thyroid measuring 5.0 x 3.0 x 2.0 cm. The external surface is focally disrupted, avalos-pink with fibrinous adhesions. The presumed anterior surface is inked blue, the posterior is inked black, the area of presumed isthmus is inked blue, and the specimen is serially sectioned to reveal red-brown reticulated, focally white and disrupted cut surfaces. Chucking Lathe Operator sections are submitted. . A1: area of presumed isthmus, perpendicularly sectioned. A2-A5: operations support representative central cross-sections. ([id number]) /MRV 09/04/2020 1413 Local . 02 Pathologist provided ICD-10: E07.9 . 02 CPT . 179157 Performed at: 01 [facility] [address] [place] [address], [place], [place] [id number] MD Yordan Carson MD Phone: [phone] Performed at: 02 [facility] [address] [place] [id number] MD Yasmin Ramos MD Phone: [phone]
[2020-09-03] MEDS: LACTATED RINGERS 1,000 ML 100 ML IV ×2 (13:35→17:11)
--- NOTE | 2020-09-03 14:18 | PM.PREOP ---
Pre-operative Note COVID-19 COVID-19 status: Negative Result date/Date tested (Pos, Neg/Pending): 09/02/20 Interval Note History & Physical reviewed/Exam performed by Physician: Yes Changes to H&P: No
[2020-09-03] MEDS: CEFAZOLIN 1 GM VIAL 2 GM IV (14:40)
[2020-09-03] MEDS: BUPIVACAINE 0.5% W/ EPI (PF) 30 ML VIAL INJ (15:19)
--- NOTE | 2020-09-03 17:38 | P.OP_ITS ---
Operative Date/Time/Diagnoses Date of procedure: 09/03/20 Time of procedure: 17:38 Pre-op diagnosis: Left thyroid lobe mass Post-op diagnosis: same Procedure & Clinicians Procedure: Left thyroid lobectomy and partial isthmusectomy Same procedure as scheduled: Yes Indications: Patient with atypia on an FNA of a mass in his left thyroid. He d id not desire repeat FNA as is presently recommended but wished to pursue removal. Therefore he was brought in for an operation. Surgeon: Cyril Ray Tank Car Inspector: Anupam Vega Anesthesia Type: General Operative Notes Findings: Cystic mass which ruptured during the procedure. Appeared to contain bloody fluid most likely related to his recent FNA. Closure Type: primary Specimen(s): other (Portion of thyroid) Estimated Blood Loss (mL): 25 Blood products transfused: none Procedure in detail: The patient was placed supine on the operating room table underwent general endotracheal anesthesia. Was then placed in semi-Manuel's position with his head extended and prepped and draped in the usual fashion. I ncision was made low in the neck in a natural skin crease. It was carried down to the level of the platysma muscles. The midline was opened and I divided the midline tissue the strap muscles from the sternal notch to the thyroid cartilage. The dissection was carried down level thyroid. Using principally blunt and dissection and some cautery and Harmonic scalpel we removed tissue from the anterior surface and then the lateral inferior surfaces of the thyroid. I could not swing the thyroid up into the field and therefore I approached the upper lobe 1st since I had difficulty seeing much below. We divided the vascular supply to the upper lobe on the thyroid cyst itself. 3-0 silk sutures were used to ligate the vessels. Ultimately he we freed the upper lobe and then pursued for the dividing attachments to the remainder of the thyroid. Any vasculature that was encounter was ligated right on the thyroid using either ties or the Harmonic scalpel. The dissection was slow and tedious as is typical. At 1 point in trying to bring the inferior pole of the thyroid into the operative field there was a sudden page of dark fluid into the wound. It appeared that we had ruptured a cyst which had hemorrhage into it. Sexually made the dissection much easier is now we could readily see the structures along the trachea. Carefully preserving the tissues in the tracheoesophageal groove we identified what appeared to be the nerve entering the thyroid cartilage and carefully preserved it and the adjacent structures. We identified the left upper parathyroid gland and carefully preserved it and its blood supply. We divided the isthmus and swung the thyroid tissue toward the left lobe and dissected down along the trachea from both directions carefully preserving the structures entering the thyroid cartilage. Ultimately the lobe was detached and removed along with the isthmus. Meticulous hemostasis was achieved. Irrigated the left neck. The midline was closed with interrupted [id number] 3-0 Vicryl. The skin was closed with 3-0 Vicryl subcutaneous stitches and a 4-0 running subcuticulars stitch. Mastisol and Steri-Strips were applied as was a dressing and the patient was awakened extubated and taken the recovery area in good condition. There were no apparent problems. Complications: none Post-operative Condition: stable Disposition: PACU Plan for aftercare: Overnight observation
[2020-09-03] MEDS: ATORVASTATIN 20 MG TABLET PO (20:37)
[2020-09-03] MEDS: LACTATED RINGERS 1,000 ML 42 ML IV (20:37)
--- NOTE | 2020-09-03 20:48 | PC.NURSE ---
1855 Pt to room 224 from PACU awake, alert, conversant. Spouse already in pt's room meets patient. Pt denies pain. Pt is able to speak and denies difficulty with swallow or managing secretions. Clear liquids given to pt and able to swallow as well as meds whole. Spouse rooming in overnight. IV fluids as per emar. Continuous pulse oximeter in place with oxygen levels on room air upper 90's. Gauze with tegaderm dressing intact to left anterior neck. Pt with head of bed elevated and ice to site.
[2020-09-04 01:00] VITALS: O2SAT 98
[2020-09-04] MEDS: OXYCODONE/ACETAMINOPHEN 5/325 TABLET 1 TAB PO (01:54)
[2020-09-04 05:00] VITALS: BP 163/105; PULSE 77; RESP 16; TEMP 36.1; O2SAT 96
[2020-09-04] MEDS: LEVOTHYROXINE 50 MCG TABLET PO (06:07)
[2020-09-04 06:08] VITALS: O2SAT 97
--- NOTE | 2020-09-04 08:54 | PM.DS.1 ---
History of Present Illness History of Present Illness Chief complaint: LEFT THYROID LOBECTOMY/ISTHMUSECTOMY *OPB* Discharge Providers Provider Discharge Date: 09/04/20 Primary care physician: Aydee Barry MD Consults: 09/03/20 19:51 Consult to Discharge Planning Routine Comment: Discharge provider: Cyril Ray MD Summary Hospital Course Discharge Diagnosis: Thyroid mass chronic Hypertension chronic Elevated cholesterol chronic Chronic thyroid suppression Hospital Course: Patient underwent a left lobectomy and isthmusectomy. He was observed overnight. There was no evidence of bleeding or expanding hematoma. Minimal swelling in the operative site. Status at Discharge Cognitive/behavioral status at discharge: oriented Functional status at discharge: independent ambulation Overall status at discharge: patient is back to baseline Exam Vital Signs (past 8 hours): - 09/04/20 01:00 09/04/20 05:00 09/04/20 06:08 Temperature 97.0 F L Pulse Rate 77 Respiratory Rate 16 Blood Pressure 163/105 H Pulse Oximetry 98 96 97 Oxygen Delivery Method Room Air Oxygen Flow Rate 0 Narrative Exam Narrative: Dressing is dry and intact. No evidence of bleeding. No unusual swelling in the operative site. Voice is a little raspy. It was not that way postoperatively in the recovery room. [facility] Medical History Hx of aortic aneurysm Hyperlipidemia Hypertension Hypothyroidism Prostate cancer Surgical History History of cataract surgery History of prostate surgery (09/27/11) S/P AAA repair Family History Mother Colon cancer Social History marital status: household members: spouse occupational status: previously employed Smoking Status: Former smoker alcohol intake: current substance use type: does not use Discharge Plan Discharge Plan Patient Disposition: Home Provider Discharge Comment: Your operation went well. There were no obvious problems. If you develop constipation from the pain medication take a laxative like milk of magnesia. You may take Tylenol (acetaminophen) in addition to or in place of the pain medication I have prescribed if you so desire. Should you develop sudden swelling in her neck or difficulty breathing please go to the emergency room immediately. Discharge orders & Medications Discharge Orders: Discharge (Order); Ordered 09/04/20 Ordered By: Cyril Ray Prescriptions: New oxycodone 5 mg tablet 5 mg PO Q4H PRN (Reason: painful procedure) Qty: 10 RF: 0 Continued levothyroxine [Synthroid] 50 MCG tablet 0.05 mg PO QDAY Qty: 0 RF: 0 atorvastatin [Lipitor] 10 MG tablet 10 mg PO HS Qty: 0 RF: 0 metoprolol succinate 25 mg Tablet Extended Release 24 Hr 50 mg PO DAILY RF: 0 losartan 25 mg Tablet 50 mg PO DAILY RF: 0 Follow up/Referrals: Aydee Barry MD [Primary Care Provider] - Cyril Ray MD [Physician] - As previously scheduled (If you need to make or change her appointment or need to reach a doctor please call our office. If it is after hours please listen to the entire message and you will be instructed how to page the doctor on-call for our practice. Have a pen and paper ready to write the number down.) Diet/Activity/Treatments Diet: Diet as Tolerated Activity: Do not drive into you can move her neck freely without pain. Try to avoid taking a deep breath in bearing down, straining, or lifting heavy objects for the next 5 days. Skin/Wound/Dressing Care Report to your healthcare provider any signs of infection, such as:: increased pain, unusual drainage and unusual redness Dressing: You may remove the plastic dressing and Telfa immediately under it in a day or 2 and shower. Do not put the incision under water for at least 2 weeks. Visit Report/Discharge Packet Instructions: DI for Thyroidectomy Discharge Data Primary Care Provider: Aydee Barry Attending Provider: Cyril Ray
[2020-09-04] MEDS: LOSARTAN 25 MG TABLET 50 MG PO (09:02)
--- NOTE | 2020-09-04 09:09 | P.DS_ITS ---
History of Present Illness History of Present Illness Chief complaint: LEFT THYROID LOBECTOMY/ISTHMUSECTOMY *OPB* Discharge Providers Provider Discharge Date: 09/04/20 Primary care physician: Aydee Barry MD Consults: 09/03/20 19:51 Consult to Discharge Planning Routine Comment: Discharge provider: Cyril Ray MD Summary Hospital Course Discharge Diagnosis: Chronic thyroid mass pathology pending. Elevated cholesterol chronic on medication Thyroid suppressive therapy with Synthroid chronic Chronic essential hypertension on medication Hospital Course: Patient underwent left lobectomy and isthmusectomy. He was observed overnight with no development of swelling or hematoma in the left neck. Status at Discharge Cognitive/behavioral status at discharge: oriented Functional status at discharge: independent ambulation Overall status at discharge: patient is back to baseline Exam Vital Signs (past 8 hours): - 09/04/20 05:00 09/04/20 06:08 Temperature 97.0 F L Pulse Rate 77 Respiratory Rate 16 Blood Pressure 163/105 H Pulse Oximetry 96 97 Oxygen Delivery Method Room Air Oxygen Flow Rate 0 Narrative Exam Narrative: No swelling in the neck. No unusual tenderness. The dressing is dry and intact. He is having some rasping in his voice. Of note: This was not present in the recovery room in may be the result of swelling related to his ET tube or swelling in the area of the vocal cord nerve supply. [facility] Medical History Hx of aortic aneurysm Hyperlipidemia Hypertension Hypothyroidism Prostate cancer Surgical History History of cataract surgery History of prostate surgery (09/27/11) S/P AAA repair Family History Mother Colon cancer Social History marital status: household members: spouse occupational status: previously employed Smoking Status: Former smoker alcohol intake: current substance use type: does not use Discharge Plan Discharge Plan Patient Disposition: Home Provider Discharge Comment: Your operation went well. There were no obvious problems. If you develop constipation from the pain medication take a laxative like milk of magnesia. You may take Tylenol (acetaminophen) in addition to or in place of the pain medication I have prescribed if you so desire. Should you develop sudden swelling in her neck or difficulty breathing please go to the emergency room immediately. Discharge orders & Medications Discharge Orders: Discharge (Order); Ordered 09/04/20 Ordered By: Cyril Ray Prescriptions: New oxycodone 5 mg tablet 5 mg PO Q4H PRN (Reason: painful procedure) Qty: 10 RF: 0 Continued levothyroxine [Synthroid] 50 MCG tablet 0.05 mg PO QDAY Qty: 0 RF: 0 atorvastatin [Lipitor] 10 MG tablet 10 mg PO HS Qty: 0 RF: 0 metoprolol succinate 25 mg Tablet Extended Release 24 Hr 50 mg PO DAILY RF: 0 losartan 25 mg Tablet 50 mg PO DAILY RF: 0 Follow up/Referrals: Cyril Ray MD [Physician] - As previously scheduled (If you need to make or change her appointment or need to reach a doctor please call our office. If it is after hours please listen to the entire message and you will be instructed how to page the doctor on-call for our practice. Have a pen and paper ready to write the number down.) Aydee Barry MD [Primary Care Provider] - Diet/Activity/Treatments Diet: Diet as Tolerated Activity: Do not drive into you can move her neck freely without pain. Try to avoid taking a deep breath in bearing down, straining, or lifting heavy objects for the next 5 days. Skin/Wound/Dressing Care Report to your healthcare provider any signs of infection, such as:: increased pain, unusual drainage and unusual redness Dressing: You may remove the plastic dressing and Telfa immediately under it in a day or 2 and shower. Do not put the incision under water for at least 2 weeks. Visit Report/Discharge Packet Instructions: DI for Thyroidectomy Discharge Data Primary Care Provider: Aydee Barry Attending Provider: Cyril Ray
[2020-09-04 10:00] VITALS: O2SAT 97
--- NOTE | 2020-09-04 10:47 | PC.NURSE ---
Discharge note: Patient discharge home as ordered, discussed importance of F/U with Dr. Ray as scheduled prior to surgery, dressing care, signs of worsening/concerning symptoms, and precautions. Rx sent to pharmacy for patient picker/puller. Both patient and spouse (Shantell) verbalized understanding of instructions. Home via private vehicle, accompanied by Shantell.
== END 2020-09-04 10:30 | disposition home or self-care (01) ==
LOC: OR 13:08 → AC 19:44
PROVIDERS: PCP Internal Medicine; Referring Provider Internal Medicine; Visit Provider Specialist
PROC: (CPT 60220; principal; 2020-09-03 14:15)
DX: E07.9 Disorder of thyroid, unspecified (principal); I10 Essential (primary) hypertension; E03.9 Hypothyroidism, unspecified; E78.5 Hyperlipidemia, unspecified
CPT/HCPCS: 60220; J0690; J1100; J2250; J2405; J2704; J3010

== ENCOUNTER → 2020-10-22 09:41 | Outpatient (CLI) | payer MEDICARE, SELFPAY ==
[2020-09-03 20:04] VITALS: BMI 25.0
--- NOTE | 2020-10-22 09:42 | DI.NM.S_ITS ---
PROCEDURE: [place] BONE SCAN WHOLE BODY RADIOPHARMACEUTICAL: 22.0 mCi Tc-99m MDP IV. INDICATIONS: Prostate cancer TECHNIQUE: Delayed whole-body scintigrams were obtained approximately 3-4 hours after intravenous injection of radiotracer. Anterior and posterior views were acquired from vertex to feet. Additional left and right oblique views of the thoracic cage were obtained. COMPARISON: [facility], [place], XR RIBS LT 2V, 08/21/2020, 15:49. [place], [place], BONE SCAN WHOLE BODY, 12/21/2006, 9:27. [place], [place] BONE SCAN WHOLE BODY, 07/23/2020, 12:40. [facility], CT, CT CHEST ABD PEL W CON, 10/22/2020, 11:00. FINDINGS: There are increased uptake projecting to the inferior left 11th and 12th ribs laterally, likely secondary to rib fractures. There is mildly increased uptake in L2 vertebral body, slightly more conspicuous compared to the last bone scan. On the comparison CT, there a small sclerotic focus in the L2 vertebral body superimposed on mild compression deformity and moderate to severe degenerative changes. No lesions are identified in skull, sternum, clavicles, scapulae, bony pelvis, and visualized shafts of the long bones. There are foci of increased periarticular activity involving shoulders, sternoclavicular joints, hips, SI joints, knees, left ankle and foot, compatible with degenerative/arthritic changes. IMPRESSION: 1. There is mildly increased activity in the area of L2 vertebral body. The comparison CT showed a small sclerotic lesion in L2 vertebral body superimposed on mild compression deformity and [id number] degenerative changes. The scintigraphic finding is indeterminate. If there is rising tumor PSA in this patient with prostate cancer, MRI with and without contrast would be helpful. 2. There are 2 foci of increased uptake involving the left inferior ribs, likely secondary to rib fractures. Dictated by: Bayron Constantino M.D. on 10/22/2020 at 17:46 Approved by: Bayron Constantino M.D. on 10/22/2020 at 17:57
--- NOTE | 2020-10-22 11:01 | DI.CT.S_ITS ---
PROCEDURE: CT CHEST ABD PEL W CON INDICATIONS: Prostate cancer TECHNIQUE: After the administration of oral and intravenous contrast, axial sections acquired from the supraclavicular neck to the pubic symphysis. Coronal and sagittal reformats were performed. For radiation dose reduction, the following was used: automated exposure control, adjustment of mA and/or kV according to patient size. COMPARISON: [facility], [place], [place] BONE SCAN WHOLE BODY, 07/23/2020, 12:40. [facility], CT, CT CHEST ABD PEL W CON, 07/21/2020, 9:55. FINDINGS: Image quality: Excellent. FINDINGS: Image quality: Excellent. CHEST: Lungs and pleura: Centrilobular emphysematous changes are seen in the mid and upper lung zones. Bilateral pulmonary subcentimeter nodules are stable. Cnp nodules measuring 3 millimeters in the left lung base series 3, image 277; 6 millimeters in the right upper lobe series 3, image 117; and left upper lobe series 3, image 147 are unchanged compared to the prior CT on 07/21/2020. No pleural effusions or pneumothorax. Central and peripheral airways are patent and normal in caliber. Mediastinum: Heart size is normal. No pericardial effusion. No mediastinal adenopathy by size criteria. The aorta has atherosclerosis with ectasia of the ascending portion measuring approximately 3.8 centimeters. The coronary arteries have atherosclerotic calcifications. Esophagus is normal in caliber. No hiatal hernia. The left thyroid gland has been resected since the prior CT. Chest wall: No axillary or supraclavicular adenopathy by size criteria. Thyroid gland is normal . ABDOMEN: Solid organs: Liver: The liver has no mass or intrahepatic biliary ductal dilatation. The portal vein and hepatic veins are patent. Biliary: The gallbladder has no gallstones, pericholecystic fluid, gallbladder wall thickening, or surrounding inflammatory change. Pancreas: The pancreas has no mass or ductal dilatation. There is no surrounding inflammation. Spleen: Normal size. There are no masses. A 1.3 centimeter splenule is seen anterior to the spleen. Adrenals: No hypertrophy or nodules. Kidneys: No obstructive calculus or hydronephrosis. No solid mass. The right kidney has a 6 centimeters cyst and the left kidney has a 2.2 centimeters cyst. Multiple additional smaller simple cysts are present bilaterally. Bowel: The distal esophagus and stomach are normal. The small bowel has a normal caliber and appearance. The terminal ileum is normal. The large bowel has diverticulosis with no evidence of diverticulitis. No free fluid or air. Nodes and vessels: No retroperitoneal or mesenteric adenopathy by size criteria aorta has multi focal atherosclerotic disease with ectasia of the infrarenal aorta. There is a kink in the aorta just above the bifurcation. No dissection. This is best demonstrated on coronal views. Both iliac arteries are ectatic measuring 2 centimeters. Abdominal wall: No abdominal wall mass or hernia. PELVIS: Genitourinary: The bladder has no wall thickening or mass. No bladder calcifications. Attenuation within the bladder seen on the prior study is not visualized on today's CT. Status post prostatectomy. Abdominal wall: No inguinal hernias or adenopathy. BONES: No suspicious bony lesions. There is a compression fracture of L2 which is chronic and unchanged. No focal sclerotic lesions suggesting prostate metastatic disease to the bones. IMPRESSION: 1. Multiple bilateral subcentimeter pulmonary nodules are stable. 2. Diverticulosis without evidence of diverticulitis. 3. Interval left thyroidectomy. 4. No new evidence of metastatic disease. Dictated by: Rishabh Tyler M.D. on 10/22/2020 at 18:16 Approved by: Rishabh Tyler M.D. on 10/22/2020 at 18:39
== END ==
PROVIDERS: PCP Internal Medicine; Referring Provider Internal Medicine Hematology & Oncology; Visit Provider Internal Medicine Hematology & Oncology
DX: C61 Malignant neoplasm of prostate (principal)
CPT/HCPCS: 71260; 74177; 78306; A9503; Q9967

== ENCOUNTER → 2020-10-31 08:30 | Outpatient (CLI) | payer MEDICARE, SELFPAY ==
[2020-09-03 20:04] VITALS: BMI 25.0
--- NOTE | 2020-10-31 | DI.MRI.S_ITS ---
PROCEDURE: MR LUMBAR SPINE WO/W CON INDICATIONS: Malignant neoplasm of prostate TECHNIQUE: Noncontrast sagittal T1 spin echo and T2 fast spin echo, sagittal STIR, axial T1 and T2 fast spin echo through the lumbar spine. In cases with scoliosis, additional coronal T2 fast spin echo may be performed. After the administration of contrast, sagittal and axial T1 spin echo with fat saturation through the lumbar spine. COMPARISON: [facility], RG, XR CXR 2 VIEW, 08/04/2004, 6:57. [facility], CT, CT CHEST ABD PEL W CON, 07/21/2020, 9:55. [facility], NM, NM BONE SCAN WHOLE BODY, 10/22/2020, 14:01. FINDINGS: Image quality: Excellent. Alignment and curvature: There is trace retrolisthesis of L2 on L3, L3 on L4, L4 on L5. Transitional anatomy is present with appearance of lumbarization of the 1st sacral vertebral body. For purposes of the exam, vertebral bodies are labeled 1 through 5. Prior to any surgical intervention, full x-ray spine series is recommended for more accurate assessment and numbering. Marrow: Marrow is of normal overall signal. Schmorl's nodes are noted along the superior endplate of L5 as well as L2 and to a lesser degree inferior endplate of L3, L4 and L5. Compression deformity of approximately 45% is noted at L2. No suspicious marrow enhancement. It is noted the focal area of increased uptake on recent nuclear medicine bone scan of 10/22/2020 as well as sclerosis on CT of 10/22/2020 and 07/21/2020 demonstrates no distinct focal enhancing lesion. Endplate signal changes are present. Spinal cord: Conus medullaris terminates at the L1 level. Visualized spinal cord demonstrates normal signal, without suspicious enhancement. Paraspinous soft tissues: No paravertebral masses or abnormal enhancement. Increased T2 signal is present within the kidneys bilaterally suggestive of simple renal cysts. Discs: Moderate to severe desiccation is present throughout the lumbar spine most severe at L2-3, L5-S1. L1-L2: Is mild disc bulge without spinal stenosis or foraminal narrowing. Mild facet and ligamentum flavum hypertrophy are present. L2-L3: Mild disc bulge with minimal to mild spinal stenosis. Mild bilateral foraminal narrowing. Mild facet and ligamentum flavum hypertrophy are present. L3-L4: Mild disc bulge with mild spinal stenosis. Minimal right foraminal narrowing. Facet and ligamentum flavum hypertrophy are present. L4-L5: Mild disc bulge with [id number] spinal stenosis. Minimal left foraminal narrowing with facet hypertrophy. L5-S1: Mild disc bulge with mild spinal stenosis. Moderate to severe left foraminal narrowing. IMPRESSION: 1. Multilevel degenerative changes. 2. Compression deformity at L2 with areas of endplate signal change. There is no discrete enhancing mass corresponding to abnormality on recent bone and CT scans. Increased signal changes suspected to represent reactive endplate change. However, signal change secondary to late subacute compression fracture cannot be definitively excluded. Dictated by: Corine Torres M.D. on 10/31/2020 at 15:19 Approved by: Corine Torres M.D. on 10/31/2020 at 15:34
== END ==
PROVIDERS: PCP Internal Medicine; Referring Provider Internal Medicine Hematology & Oncology; Visit Provider Internal Medicine Hematology & Oncology
DX: C61 Malignant neoplasm of prostate (principal); M51.36 Other intervertebral disc degeneration, lumbar region; M48.061 Spinal stenosis, lumbar region without neurogenic claudication
CPT/HCPCS: 72158; A9579

== ENCOUNTER 2021-09-26 17:50 | Emergency (ER) | payer MEDICARE, SELFPAY ==
[2020-09-03 20:04] VITALS: BMI 25.0
[2021-09-26] VITALS (9 sets, daily range): BP systolic 157–182; BP diastolic 93–108; PULSE 61–67; RESP 17; TEMP 36.6; O2SAT 97–99; BMI 24.0
--- NOTE | 2021-09-26 18:42 | DI.RAD.S_ITS ---
PROCEDURE: XR LUMBAR SPINE 2-3V INDICATIONS: back pain. TECHNIQUE: 3 views of the lumbar spine were acquired. COMPARISON: [facility], CT, CT CHEST ABD PEL W CON, 10/22/2020, 11:00. [facility], CR, XR LUMBAR SPINE 2-3V, 01/02/2020, 8:31. FINDINGS: Bones: 5 [id number] vertebrae are present. There is normal bony alignment. L1 compression fracture, mild, unchanged. Subtle angulation of the mid sacrum, not significantly changed. No suspicious bony lesions. Soft tissues: Prominent stool in the colon. No suspicious soft tissue calcifications. Clips in the right pelvis. IMPRESSION: Stable L1 compression fracture, mild. Dictated by: Renzo Lee M.D. on 09/26/2021 at 19:53 Approved by: Renzo Lee M.D. on 09/26/2021 at 19:55
--- NOTE | 2021-09-26 22:25 | ED_ITS ---
HPI - Back Pain/Injury General Chief Complaint: Back Pain/Injury Stated Complaint: ext back pain not able to stand/keeps almost falli Time Seen by Provider: 09/26/21 22:22 Source: patient History of Present Illness HPI Narrative: Patient is an 81-year-old male has chronic ongoing back pain prostate cancer presenting today with worsening back pain. Then initially his back pain which just on the right side he actually had an MRI 1 year ago which did show multiple levels of mild disc bulge with mild spinal stenosis. He started physical therapy 5 weeks ago and says that his pain is actually getting worse and going over to the left side. He has no numbness or tingling down his legs. He has no changes in bowel or bladder habits. He has not fallen recently. He does not take medicine regularly for his back pain. He tries to avoid Tylenol Aleve and ibuprofen but he did actually take 1 is 220 mg tablets of Aleve at 5:30 p.m. without any relief. Related Data Home Medications Medication Instructions Recorded Confirmed levothyroxine 50 mcg tablet 0.05 mg PO QDAY ##0 09/22/11 07/27/21 (Synthroid) atorvastatin 10 mg tablet (Lipitor) 10 mg PO HS ##0 09/27/11 07/27/21 metoprolol succinate 25 mg 50 mg PO DAILY 09/01/17 07/27/21 tablet,extended release 24 hr losartan 25 mg tablet 50 mg PO DAILY 07/31/20 07/27/21 Previous Rx's Medication Instructions Recorded enzalutamide 80 mg tablet 160 mg PO DAILY nonmetastatic CRPC 12/18/20 #60 tabs Allergies Allergy/AdvReac Type Severity Reaction Status Date / Time No Known Drug Allergies Allergy Verified 09/26/21 18:42 Review of Systems Review of Systems Narrative: GENERAL: Denies chills,fever HEENT: Denies throat pain RESPIRATORY: Denies dyspnea, cough, wheezing CARDIOVASCULAR: Denies chest pain, palpitations GASTROINTESTINAL: Denies nausea, vomiting MUSCULOSKELETAL: See HPI SKIN: No rash, no laceration, no pruritus NEUROLOGIC: Denies weakness, dizziness, headache, numbness 8 point review of systems is negative except for those stated above and HPI Patient History Medical History Hx of aortic aneurysm Hyperlipidemia Hypertension Hypothyroidism Prostate cancer Surgical History History of cataract surgery History of prostate surgery (09/27/11) S/P AAA repair Family History Mother Colon cancer Social History marital status: household members: spouse occupational status: previously employed Smoking Status: Former smoker alcohol intake: current substance use type: does not use Smoking Status: Former smoker alcohol intake frequency: 0-2 drinks per day Substance Use Type: does not use Exam Initial Vital Signs Initial Vital Signs: Vital Signs Temperature 97.8 F 09/26/21 18:37 Pulse Rate 66 09/26/21 18:37 Respiratory Rate 17 09/26/21 18:37 Blood Pressure 157/93 H 09/26/21 18:37 Pulse Oximetry 98 09/26/21 18:37 Oxygen Delivery Method 09/26/21 18:37 GENERAL: Alert 81-year-old male CARDIOVASCULAR: peripheral pulses in tact, cap refill <2 sec RESPIRATORY: No respiratory distress, speaks in full sentences without difficulty BACK: Tenderness bilateral spit paraspinal muscle EXTREMITIES: Normal range of motion, no clubbing or edema. Neurovascularly intact NEUROLOGICAL: Cranial nerves II through XII grossly intact. Normal gait and speech. SKIN: Warm, dry, no petechiae, no rashes or lesions. Course Orders Ordered: Discontinued Medications Acetaminophen (Acetaminophen 325 Mg Tablet) 975 mg PO NOW ONE Stop: 09/26/21 23:15 Last Admin: 09/26/21 23:21 Dose: 975 mg Documented By: REI Cyclobenzaprine HCl (Cyclobenzaprine 10 Mg Prepack) [facility] Stop: 09/27/21 00:19 Last Admin: 09/27/21 00:35 Dose: 1 bottle Documented By: SUJIT Ketorolac Tromethamine (Ketorolac 30 Mg/Ml Vial) 30 mg IM NOW ONE Stop: 09/26/21 23:15 Last Admin: 09/26/21 23:21 Dose: 30 mg Documented By: REI Vital Signs Vital signs: Vital Signs - 8 hr 09/26/21 21:16 09/26/21 21:30 09/26/21 22:00 Pulse Rate 63 65 62 Respiratory Rate Blood Pressure Pulse Oximetry 98 97 98 09/26/21 22:30 09/26/21 22:56 09/26/21 22:56 Pulse Rate 65 61 Respiratory Rate Blood Pressure 180/94 H Pulse Oximetry 98 97 09/26/21 23:00 09/26/21 23:01 09/26/21 23:01 Pulse Rate 67 67 Respiratory Rate Blood Pressure 176/103 H Pulse Oximetry 99 99 09/26/21 23:30 09/26/21 23:30 09/27/21 00:00 Pulse Rate 63 64 Respiratory Rate Blood Pressure 182/108 H Pulse Oximetry 97 99 09/27/21 00:01 09/27/21 00:01 09/27/21 00:30 Pulse Rate 67 Respiratory Rate Blood Pressure 175/95 H 173/92 H Pulse Oximetry 97 09/27/21 00:30 09/27/21 00:36 Pulse Rate 67 Respiratory Rate 20 Blood Pressure Pulse Oximetry 98 MDM - Back Pain/Injury MDM Narrative Medical decision making narrative: Known ongoing chronic back pain he has been in physical therapy pain seems to be getting slightly worse. He is noted to be mildly hypertensive not take his blood pressure medication. He has no changes in urine or stool incontinence. No sign of cauda equina. Is even though he is mildly hypertensive here in the ED I do not think a has a dissection. He is found to have stable compression fracture which I believe is mislabeled and probably needs to say L2 which was diagnosed on MRI a year ago. He is given medications he overall is anxious and ready to leave. He will take MiraLax when he gets home. I request that he decreased PT in follow-up with PCP. The patient states he denies any recent falls. Unclear how or why he got compression fracture. There do not seem to be significant bony metastasis from his prostate cancer. Discharge Plan Departure Patient Disposition: Home Clinical Impression: Chronic back pain Instructions: DI for Back Spasm Activity Restrictions/Additional Instructions: *You have been diagnosed with back pain *What to do: At this time it x-ray shows stable L1 compression fracture. Actually was seen on MRI 1 year ago. This pair may not be contributing to her worsening back pain. Please talked with physical therapy before continuing with physical therapy *Continue to take medications as directed Tylenol 650 mg every 4-6 hours if needed for [id number] Cyclobenzaprine 5 mg every 8 hours only if needed for severe muscle spasm this does cause drowsiness do not drive *Follow up with your primary care provider in 2-3 days or call [phone] *Return to ER if you should have increasing back pain, numbness tingling weakness, change in bowel or bladder habits or any new, worsening or concerning symptoms Prescriptions: No Action levothyroxine [Synthroid] 50 MCG tablet 0.05 mg PO QDAY Qty: 0 atorvastatin [Lipitor] 10 MG tablet 10 mg PO HS Qty: 0 metoprolol succinate 25 mg Tablet Extended Release 24 Hr 50 mg PO DAILY losartan 25 mg Tablet 50 mg PO DAILY enzalutamide 80 mg Tablet 160 mg PO DAILY Qty: 60 11RF Referrals: Aydee Barry MD [Primary Care Provider] - Visit Report Forms: Patient Portal/API
[2021-09-26] MEDS: ACETAMINOPHEN 325 MG TABLET 975 MG PO (23:21)
[2021-09-26] MEDS: KETOROLAC 30 MG/ML VIAL IM (23:21)
--- NOTE | 2021-09-26 23:35 | PC.NURSE ---
Pt is taking his routine home BP meds with ok from Dr Mart
[2021-09-27] VITALS: PULSE 64; O2SAT 99
[2021-09-27 00:01] VITALS: BP 175/95; PULSE 67; O2SAT 97
[2021-09-27 00:30] VITALS: BP 173/92; PULSE 67; O2SAT 98
[2021-09-27] MEDS: CYCLOBENZAPRINE 10 MG PREPACK 1 BOTTLE MISC (00:35)
[2021-09-27 00:36] VITALS: RESP 20
== END 2021-09-27 00:41 | disposition home or self-care (01) ==
PROVIDERS: Emergency Provider Emergency Medicine; PCP Internal Medicine
DX: G89.18 Other acute postprocedural pain (principal); M54.9 Dorsalgia, unspecified; I10 Essential (primary) hypertension
CPT/HCPCS: 72100; 96372; 99283; J1885

== ENCOUNTER → 2021-11-27 10:58 | Outpatient (CLI) | payer MEDICARE, SELFPAY ==
[2020-09-03 20:04] VITALS: BMI 25.0
--- NOTE | 2021-11-27 | DI.MRI.S_ITS ---
PROCEDURE: MR LUMBAR SPINE WO/W CON INDICATIONS: Malignant neoplasm of prostate TECHNIQUE: Noncontrast sagittal T1 spin echo and T2 fast spin echo, sagittal STIR, post-Gadolinium axial T1 spin echo with fat saturation through the thoracic and lumbar spines, with additional T2 fast spin echo and post-contrast axial T1 spin echo with fat saturation sequences acquired through levels of suspected cord compression. COMPARISON: [facility], CT, CT CHEST ABD PEL W CON, 11/27/2021, 12:35. [facility], MR, MR LUMBAR SPINE WO/W CON, 10/31/2020, 9:55. FINDINGS: Image quality: Images are severely degraded by patient motion despite repeat sequences being obtained. Some diagnostic information is obtained. Bones: Transitional anatomy is noted. A 13 rib pairs are noted on the prior CT of the chest, abdomen, and pelvis. For the purposes of this report, the thoracolumbar transitional element is designated as L1 with short rudimentary ribs. The lumbosacral transitional element is designated as S1. This numbering is in keeping with the system used on the prior MRI from 10/31/2020. Mild chronic anterior compression deformity is again seen at the L2 vertebral body that does not appear significantly changed when compared to the CT from 10/22/2020. Edema surrounding the L2-3 disc space on the right may be related to Modic type 1 degenerative endplate changes versus due to the L2 compression fracture the Moderate compression deformity of the superior endplate of T12 is new when compared to the prior CT. There is associated T1 hypointense signal and increased STIR signal and enhancement. Mild levoconvex curvature of the thoracolumbar spine is seen centered at the L2 level. No definite focal masslike contrast enhancement is seen within the spine on these motion degraded images. Spinal cord: The distal spinal cord is normal in size on sagittal images, although the conus medullaris and cauda coronary nerve roots are not well evaluated due to extensive patient motion. Conus medullaris is normal in location. No enhancing epidural mass lesions. Paraspinous soft tissues: Grade 2-3 fatty infiltration of the paraspinous musculature is noted. No paravertebral masses. A large right renal T2-hyperintense cyst is seen measuring up to 6.5 cm. Left renal 2.5 cm T2-hyperintense cyst is seen. Multilevel disc space narrowing and disc bulging are seen as well as facet hypertrophy throughout the lumbar spine. Findings result in neural foraminal narrowing that is worst and moderate in severity at the L5-S1 level on the left. Drge-ek-ygesafjj neural foraminal narrowing is seen at the L2-3 and L3-4 levels on the right. No high-grade neural foraminal narrowing. Multilevel mild to moderate spinal canal narrowing is seen that is most prominent at the L2-3 and L4-5 levels. No high-grade spinal canal stenosis. IMPRESSION: 1. Severely motion degraded exam. No definite enhancing osseous metastasis is seen. 2. Transitional anatomy is present. For the purposes of this report, the thoracolumbar transitional element is designated as L1 and the lumbosacral transitional element is designated as S1. 3. Acute or subacute moderate compression deformity of the T12 vertebral body with associated osseous edema. No masslike contrast enhancement is seen to suggest a pathologic fracture. 4. Unchanged mild compression deformity of the L2 vertebral body. 5. Mild levoconvex curvature of the lumbar spine and multilevel degenerative changes resulting in mtgp-[id number] spinal canal narrowing and neural foraminal narrowing. Dictated by: Corey Manriquez M.D. on 11/27/2021 at 14:22 Approved by: Corey Manriquez M.D. on 11/27/2021 at 15:04
--- NOTE | 2021-11-27 10:59 | DI.CT.S_ITS ---
PROCEDURE: CT CHEST ABD PEL W CON INDICATIONS: Prostate cancer TECHNIQUE: After the administration of oral and intravenous contrast, axial sections acquired from the supraclavicular neck to the pubic symphysis. Coronal and sagittal reformats were performed. For radiation dose reduction, the following was used: automated exposure control, adjustment of mA and/or kV according to patient size. COMPARISON:[facility], CT, CT CHEST ABD PEL W CON, 07/21/2020, 9:55. [facility], CT, CT CHEST ABD PEL W CON, 10/22/2020, 11:00. FINDINGS: Image quality: Excellent. CHEST: Lower Neck: No enlarged lymph nodes. Thyroid: Within normal limits. Axillae: No enlarged lymph nodes. Chest Wall: Unremarkable. Lungs and Airways: There are multiple pulmonary nodules, unchanged in size since the last exam. Reference nodules are listed in the following: Nodule 1: 6 mm; right upper lobe; series 3, image 107. Nodule 2: 5 mm; left upper lobe; series 3, image 68. Nodule 3: 6 mm; left lower lobe; series 3, image 274. Nodule 4: 3 mm; left lower lobe; series 3, image 250. Pleura: No pneumothorax or pleural effusions. Heart: Heart size is normal. No pericardial effusion. Thoracic Vessels: The aorta and pulmonary arteries demonstrate normal size. Mediastinum and Cherry: No enlarged lymph nodes. Esophagus: No wall thickening. Small hiatal hernia. ABDOMEN: Liver: Liver is normal in size. There is mild hepatic steatosis. Gallbladder: Unremarkable. Biliary ducts: Unremarkable. Pancreas: Unremarkable. Spleen: Unremarkable. Adrenal Glands: Unremarkable. Kidneys and Ureters: Kidneys are normal in size and symmetrical enhancement. Multiple renal cysts are present bilaterally. No stones or hydronephrosis. Stomach and Bowel: Stomach, small bowel loops, and colon are normal in caliber. Diverticulosis. No acute diverticulitis. There is a large amount of stool in colon. Peritoneum: No abnormal intraperitoneal fluid. No free air. Ventral Wall: No hernia. Abdominal Nodes: No retroperitoneal or mesenteric adenopathy by size criteria. Vessels: Aorta and inferior vena cava are normal in size. Moderate to severe atherosclerotic calcifications. There is abdominal aortic ectasia and bilateral common iliac artery ectasia. PELVIS: Pelvic Organs: Unremarkable. Bladder: Unremarkable. Pelvic Nodes: No enlarged lymph nodes. Miscellaneous: No inguinal hernias are seen. Bones: Moderate compression fracture of T11 and L1. The T11 fracture is new since the last exam. L1 fracture was present and appears unchanged. Scoliosis and extensive degenerative changes in lumbar spine. IMPRESSION: 1. No definitive metastatic disease. 2. Multiple pulmonary nodules are present, unchanged in size since 07/21/2020. Recommend continue CT follow-up. 3. No lymphadenopathy in thorax, abdomen or pelvis. 4. Moderate compression fractures of T11 and L1. L1 compression fracture was present and appears unchanged. T11 fracture is new. If clinically indicated, MRI may be helpful. Dictated by: Bayron Constantino M.D. on 11/27/2021 at 16:32 Approved by: Bayron Constantino M.D. on 11/27/2021 at 17:36
== END ==
PROVIDERS: PCP Internal Medicine; Referring Provider Internal Medicine Hematology & Oncology; Visit Provider Internal Medicine Hematology & Oncology
DX: C61 Malignant neoplasm of prostate (principal); M47.816 Spondylosis without myelopathy or radiculopathy, lumbar region; M48.061 Spinal stenosis, lumbar region without neurogenic claudication; M48.07 Spinal stenosis, lumbosacral region; I77.811 Abdominal aortic ectasia; I70.0 Atherosclerosis of aorta; N28.1 Cyst of kidney, acquired; R91.8 Other nonspecific abnormal finding of lung field; K44.9 Diaphragmatic hernia without obstruction or gangrene; K76.0 Fatty (change of) liver, not elsewhere classified; K57.90 Diverticulosis of intestine, part unspecified, without perforation or abscess without bleeding
CPT/HCPCS: 71260; 72158; 74177; Q9967

== ENCOUNTER → 2021-12-11 09:20 | Outpatient (CLI) | payer MEDICARE, SELFPAY ==
[2020-09-03 20:04] VITALS: BMI 25.0
--- NOTE | 2021-12-11 09:21 | DI.NM.S_ITS ---
PROCEDURE: TN BONE SCAN WHOLE BODY RADIOPHARMACEUTICAL: 22 mCi Tc-99m MDP IV. INDICATIONS: Prostate cancer TECHNIQUE: Delayed whole-body scintigrams were obtained approximately 3-4 hours after intravenous injection of radiotracer. Anterior and posterior views were acquired from vertex to feet. COMPARISON: [facility], , MR LUMBAR SPINE WO/W CON, 11/27/2021, 13:00. [facility], TN, TN BONE SCAN WHOLE BODY, 10/22/2020, 14:01. FINDINGS: Physiologic uptake is noted within the kidneys and bladder. There is increased uptake at what appears to be the level of T12, new compared to prior exam. There is persistent focus of increased uptake at L2 as previously identified. Degenerative uptake is noted within the knees as well as small bones of the feet and hands. IMPRESSION: Increased uptake at the level corresponding to abnormality on MRI lumbar spine. It is overall nonspecific as increased uptake could be secondary to trauma versus pathologic fracture. Unchanged focus of uptake at the level of L2 as previously identified. Dictated by: Corine Torres M.D. on 12/11/2021 at 16:20 Approved by: Corine Torres M.D. on 12/11/2021 at 16:22
== END ==
PROVIDERS: PCP Internal Medicine; Referring Provider Internal Medicine Hematology & Oncology; Visit Provider Internal Medicine Hematology & Oncology
DX: C61 Malignant neoplasm of prostate (principal)
CPT/HCPCS: 78306; A9503

== ENCOUNTER → 2021-12-25 13:53 | Outpatient (CLI) | payer MEDICARE, SELFPAY ==
[2020-09-03 20:04] VITALS: BMI 25.0
== END ==
PROVIDERS: PCP Internal Medicine; Referring Provider Internal Medicine; Visit Provider Internal Medicine
DX: M85.89 Other specified disorders of bone density and structure, multiple sites (principal)
CPT/HCPCS: 77080

== ENCOUNTER 2022-09-01 07:51 | Day surgery (SDC) | payer MEDICARE, SELFPAY ==
[2020-09-03 20:04] VITALS: BMI 25.0
--- NOTE | 2022-09-01 | PATH_ITS ---
[facility] Accession Number: [id number] No. of containers..01 Tissue . 01 Material submitted: . colon - SIGMOID POLYP @ 25 CM . 01 Diagnosis: Sigmoid Colon, Polyp at 25 cm, Biopsy: Tubular adenoma. MRV 09/08/2022 1611 Local . 01 Electronically signed: . Yasmin Ramos MD, Pathologist NPI- [id number] . 01 Gross description: . SIGMOID POLYP @ 25 CM: Received in formalin is 1 fragment(s) of avalos, soft tissue measuring 0.3 x 0.3 x 0.2 cm submitted entirely in 1 cassette(s) /VJ 09/03/2022 0034 Local . 01 Pathologist provided ICD-10: D12.5 . 01 CPT . 972016 Specimen Comment: A courtesy copy of this report has been sent to [phone] Performed at: 01 [facility] [address] [place] [address], [place], [place] [id number] MD Yordan Carson MD Phone: [phone]
[2022-09-01 08:12] VITALS: BP 139/91; PULSE 81; RESP 16; TEMP 36.1; O2SAT 98; BMI 23.6
[2022-09-01] MEDS: LACTATED RINGERS 1,000 ML 42 ML IV (08:21)
--- NOTE | 2022-09-01 09:05 | PM.PREOP ---
Pre-operative Note COVID-19 COVID-19 status: Negative Interval Note History & Physical reviewed/Exam performed by Physician: Yes Changes to H&P: No ASA Class (for procedural sedation): II
--- NOTE | 2022-09-01 09:05 | PM.OP.COLON ---
Operative Date/Time/Diagnoses Date of procedure: 09/01/22 Pre-op diagnosis: See indication and findings Procedure & Clinicians Study performed: Colonoscopy Indications: History of colon polyps Surgeon: Leydi Grubbs Procedure Notes Procedure in detail: After informed consent was obtained the patient was placed in left lateral decubitus position. The video colonoscope was introduced the rectum slowly advanced to the cecum. On slow withdrawal mucosa was carefully examined. The scope was removed. The patient tolerated procedure well. Blood loss none Complications none Sedation mac Findings 1. Extensive sigmoid diverticulosis 2. 8 mm semi pedunculated polyp in the sigmoid colon at 25 cm. Cold snared and removed completely. 3. Otherwise negative colonoscopy to cecum Jeff will not need further colonoscopy. We will be in touch regarding the pathology findings.
[2022-09-01 09:47] VITALS: BP 95/68; PULSE 89; RESP 16; TEMP 36.1; O2SAT 95
[2022-09-01 09:51] VITALS: BP 101/64; PULSE 79; RESP 14; O2SAT 95
[2022-09-01 09:57] VITALS: BP 94/70; PULSE 83; RESP 15; O2SAT 95
[2022-09-01 10:01] VITALS: BP 111/63; PULSE 84; RESP 21; TEMP 36.2; O2SAT 94
[2022-09-01 10:08] VITALS: BP 116/71; PULSE 80; RESP 14; TEMP 36.2; O2SAT 94
== END 2022-09-01 10:23 | disposition home or self-care (01) ==
PROVIDERS: PCP Internal Medicine; Referring Provider Internal Medicine Gastroenterology; Visit Provider Internal Medicine Gastroenterology
PROC: 0DJD8ZZ Inspection of Lower Intestinal Tract, Via Natural or Artificial Opening Endoscopic (ICD-10-PCS; CPT 45378; principal; 2022-09-01 09:00)
DX: Z12.11 Encounter for screening for malignant neoplasm of colon (principal); Z86.010 Personal history of colon polyps; K57.30 Diverticulosis of large intestine without perforation or abscess without bleeding; D12.5 Benign neoplasm of sigmoid colon
CPT/HCPCS: 45380; J2704

== ENCOUNTER → 2022-10-08 10:16 | Outpatient (CLI) | payer MEDICARE, SELFPAY ==
[2020-09-03 20:04] VITALS: BMI 25.0
--- NOTE | 2022-10-08 10:18 | DI.RAD.S_ITS ---
PROCEDURE: XR LUMBAR SPINE MIN 4V INDICATIONS: T12 and L2 fracture follow-up TECHNIQUE: 5 views of the lumbar spine were acquired, including bilateral oblique views. COMPARISON: [facility], MR, MR LUMBAR SPINE WO/W CON, 11/27/2021, 13:00. [facility], CR, XR LUMBAR SPINE 2-3V, 09/26/2021, 18:45. FINDINGS: Bones: Transitional anatomy is present. For the purposes of this report, the lumbosacral transitional element is designated as S1 and the thoracolumbar transitional element is designated as L1. This is in keeping with the numbering system used on the prior lumbar spine MRI dated 11/27/2021. There is mild levoconvex curvature of the lumbar spine. Grade 1 retrolisthesis of L2 on L3. Generalized osteopenia. Mild to moderate T12 and L2 compression fractures do not appear significantly changed when compared to the radiographs from 09/26/2021. No new compression fracture. No suspicious bony lesions. Multilevel disc space narrowing degenerative endplate changes and multilevel facet hypertrophy are noted. Soft tissues: Overlying bowel gas pattern is normal. No suspicious soft tissue calcifications. Oblique images: No pars defects. IMPRESSION: 1. Transitional spinal anatomy is again seen. 2. Unchanged moderate compression fractures of the lower thoracic and upper lumbar spine. No new compression fracture. 3. Moderate to severe multilevel spondylosis. Mild levoconvex curvature. Approved by: Corey Manriquez M.D. on 10/08/2022 at 12:39
--- NOTE | 2023-05-24 14:48 | PC.NURSE ---
[facility] WITH [facility] STILL HAS 5 REFILLS PER PATIENT'S . THIS NURSE CONTACTED HER REGARDING A FAXED NOTICE FROM [facility] STATING THAT THE PATIENT COULD NOT BE REACHED. STATED THAT SHE CLARIFIED THIS WITH [facility]. RAUL IS IN THE CARE OF AN ONCOLOGIST ON [facility] BUT WILL LIKE TO SEE SOMEONE HERE LOCALLY WHEN HE IS BACK IN [place] IN THE [place].
== END ==
PROVIDERS: PCP Internal Medicine; Referring Provider Physical Medicine & Rehabilitation; Visit Provider Physical Medicine & Rehabilitation
DX: S22.080A Wedge compression fracture of T11-T12 vertebra, initial encounter for closed fracture (principal); S32.020A Wedge compression fracture of second lumbar vertebra, initial encounter for closed fracture; M47.816 Spondylosis without myelopathy or radiculopathy, lumbar region
CPT/HCPCS: 72110

== ENCOUNTER → 2022-10-15 12:04 | Outpatient (CLI) | payer MEDICARE, SELFPAY ==
[2020-09-03 20:04] VITALS: BMI 25.0
--- NOTE | 2022-10-15 12:05 | DI.RAD.S_ITS ---
PROCEDURE: XR THORACIC SPINE 3V INDICATIONS: COMPRESSION FRACTURE T11 TECHNIQUE: 3 views of the thoracic spine were acquired. COMPARISON: [facility], CR, XR LUMBAR SPINE MIN 4V, 10/08/2022, 10:32. FINDINGS: Bones: Generalized decreased osseous mineralization. Wedge-shaped compression fractures noted at T10, T11 and T12, partially imaged by obliquity additional L2 compression fracture noted on the anterior film Soft tissues: No paravertebral stripe thickening. IMPRESSION: Multilevel osteopenic compression fractures. Consider follow-up MR Approved by: Fercho Day M.D. on 10/15/2022 at 18:30
== END ==
PROVIDERS: PCP Internal Medicine; Referring Provider Physical Medicine & Rehabilitation; Visit Provider Physical Medicine & Rehabilitation
DX: S22.080A Wedge compression fracture of T11-T12 vertebra, initial encounter for closed fracture (principal)
CPT/HCPCS: 72072

== ENCOUNTER 2022-10-28 13:07 | Outpatient (CLI) | payer MEDICARE, SELFPAY ==
[2020-09-03 20:04] VITALS: BMI 25.0
--- NOTE | 2022-10-28 13:09 | DI.RAD.S_ITS ---
PROCEDURE: PAIN L INTERLAMINAR/CAUDAL INJ INDICATIONS: SPONDYLOSIS COMPARISON: None. FINDINGS: Fluoroscopic spot filming was performed to verify placement of spinal needles at the L5-S1 interlaminar space level(s), as labeled on the films. Appropriate location(s) of the needle tip(s) was confirmed by injection of iodinated contrast. IMPRESSION: Access needle in the L5-S1 interlaminar space for translaminar epidural steroid injection. Dictated by: Amber Parker MD, PhD on 10/28/2022 at 15:17 Approved by: Amber Parker MD, PhD on 10/28/2022 at 15:18
[2022-10-28 13:15] VITALS: BP 137/71; PULSE 59; RESP 14; TEMP 35.8; O2SAT 96
[2022-10-28 14:30] VITALS: BP 132/88; PULSE 58; RESP 20; O2SAT 99
[2022-10-28] MEDS: DEXAMETHASONE 10 MG/ML VIAL 20 MG INJ (14:32)
[2022-10-28] MEDS: BUPIVACAINE 0.25% (PF) VIAL 2 ML INJ (14:32)
[2022-10-28] MEDS: BETAMETHASONE 30 MG/5 ML MDV 6 MG INJ (14:32)
[2022-10-28] MEDS: IOPAMIDOL 15 ML VIAL 3 ML INJ (14:33)
[2022-10-28 14:35] VITALS: BP 155/80; PULSE 55; RESP 18; O2SAT 100
[2022-10-28 14:38] VITALS: BP 142/84; PULSE 56; RESP 19; O2SAT 100
--- NOTE | 2022-10-28 14:43 | PM.PROC.IR.1 ---
Date/Time/Diagnoses Date of procedure: 10/28/22 Time of procedure: 14:43 Pre-procedure diagnosis: 1. HNP WITH RADICULAR FEATURES, 2. MULTILEVEL CENTRAL STENOSIS, Post-procedure diagnosis: same Procedure Notes Procedure: 1. FLUOROSCOPICALLY GUIDED CONTRAST CONTROLLED INTERLAMINAR EPIDURAL STEROID INJECTION - L5/S1 Indications: Armand is referred by Dr. Barry for treatment of Bilateral Foraminal Stenosis L>R LE symptoms. Physician: Rayshawn Denton Total Fluoroscopy time (seconds): 10 Total sedation minutes: 0 Complications: none Procedure in detail & Post-procedure care: FINDINGS Multilevel Central Spinal Stenosis with Nerve Root Compression DESCRIPTION OF PROCEDURE Fluoroscopically guided, contrast-controlled L5/S1 translaminar epidural steroid injection. Following review of allergy and review of potential side effects and complications, including, but not necessarily limited to, infection, allergic reaction, local tissue breakdown, temporary as well as permanent nerve injury, paralysis, stroke and possible , the patient indicated that the patient understood and agreed to proceed. An informed consent document was signed by the patient, witnessed by a nurse, and placed in the patient's chart. Additionally, other treatment options including modalities, medications, and physical therapy were reviewed with the patient. After review of previous anaesthesic history and IV conscious sedation the patient was deemed safe to proceed with today?s procedure with IV conscious sedation as ASA class II designation. Safety time-out was performed to confirm patient ID, procedure to be performed and site of procedure. IV sedation was deemed unnecessary and thus not administered by the RN after DO order, titrated to patient comfort during the course of the procedure while the patient remained responsive to all verbal commands. In the prone position, following sterile prep and drape of the lumbar region, the L5/S1 translaminar space was identified fluoroscopically. The skin was anesthetized via a 25-gauge, 1.5-inch needle with 1% lidocaine solution. At this point, a 22-gauge short bevel spinal needle was atraumatically introduced and advanced under fluoroscopic guidance into the region of the L5/S1 translaminar space. Depth was confirmed on lateral view. Radiological data, including multiple fluoroscopic views of the lumbar spine, reveal a spinal needle at the L5/S1 translaminar space. Lateral views then show placement of the needle in the epidural space. Subsequent views show contrast material flowing superiorly and inferiorly in the epidural space. No vascular or intrathecal uptake is observed. At this point, using loss of resistance technique with saline and air, the epidural space was entered. This was confirmed following negative aspiration with injection of approximately 1.5cc of Isovue 200, showing excellent epidural flow without vascular or intrathecal uptake. At this point, 1 cc of 1% lidocaine solution combined with 3cc or 20mg of dexamethasone and 6mg of betamethasone was injected without incident. The patent tolerated the procedure without signs of symptoms of complications prior to transfer to the recovery area for further monitoring. The patient was then transferred to the recovery area where they were observed for an appropriate period of time after the injection. The patient reported a VAS score of 7 prior to the procedure and a post-procedure VAS of 0. POST OP INSTRUCTIONS The patient was provided a Pain Log to continue to record their response to the target-specific procedure prior to follow-up visit with their referring physician. Additionally, specific post-injection care instructions and a contact number to our office were provided if concerns arise regarding possible complications associated with the procedure are suspected.
[2022-10-28 14:56] VITALS: BP 143/76; PULSE 57; RESP 18; O2SAT 95
== END 2022-10-28 15:00 | disposition home or self-care (01) ==
PROVIDERS: PCP Internal Medicine; Referring Provider Physical Medicine & Rehabilitation; Visit Provider Physical Medicine & Rehabilitation
DX: M51.17 Intervertebral disc disorders with radiculopathy, lumbosacral region (principal); M48.07 Spinal stenosis, lumbosacral region; M48.061 Spinal stenosis, lumbar region without neurogenic claudication
CPT/HCPCS: 62323; J0702; J1100; J3490

== ENCOUNTER → 2023-07-12 12:37 | Outpatient (CLI) | payer MEDICARE, SELFPAY ==
[2020-09-03 20:04] VITALS: BMI 25.0
--- NOTE | 2023-07-12 12:41 | DI.RAD.S_ITS ---
PROCEDURE: XR THORACIC SPINE 3V INDICATIONS: RIB PAIN/T12 FX TECHNIQUE: 3 views of the thoracic spine were acquired. COMPARISON: [facility], CR, XR LUMBAR SPINE MIN 4V, 07/12/2023, 12:42. [facility], CR, XR THORACIC SPINE 3V, 10/15/2022, 12:07. FINDINGS: Bones: T12 and L2 compression deformities of a without significant change compared to October 15, 2022. . Spine degenerative disc disease and facet arthropathy. No suspicious bony lesions. 12 pairs of ribs are noted, and appear intact where visualized. Soft tissues: No paravertebral stripe thickening. IMPRESSION: Chronic T12 and L2 compression fractures without significant change. No acute fractures. Dictated by: Amber Parker MD, PhD on 07/12/2023 at 13:14 Approved by: Amber Parker MD, PhD on 07/12/2023 at 13:16
--- NOTE | 2023-07-12 12:41 | DI.RAD.S_ITS ---
PROCEDURE: XR LUMBAR SPINE MIN 4V INDICATIONS: BACK PAIN/ L2 FRACTURE TECHNIQUE: 5 views of the lumbar spine were acquired, including bilateral oblique views. COMPARISON: [facility], , XR LUMBAR SPINE MIN 4V, 10/08/2022, 10:32. FINDINGS: Bones: 5 nonrib-bearing vertebrae are present. There is normal bony alignment. T12 and L2 compression fractures without significant change compared to October 08, 2022. Spine degenerative disc disease and facet arthropathy.No suspicious bony lesions. Soft tissues: Overlying bowel gas pattern is normal. No suspicious soft tissue calcifications. Oblique images: No pars defects. IMPRESSION: Chronic T12 and L2 compression fractures without significant change. No new compression fractures. Dictated by: Amber Parker MD, PhD on 07/12/2023 at 13:19 Approved by: Amber Parker MD, PhD on 07/12/2023 at 13:20
== END ==
LOC: RAD 12:41
PROVIDERS: PCP Internal Medicine; Referring Provider Physical Medicine & Rehabilitation; Visit Provider Physical Medicine & Rehabilitation
DX: S22.080A Wedge compression fracture of T11-T12 vertebra, initial encounter for closed fracture (principal); S32.020A Wedge compression fracture of second lumbar vertebra, initial encounter for closed fracture; M51.27 Other intervertebral disc displacement, lumbosacral region; M51.26 Other intervertebral disc displacement, lumbar region; M51.34 Other intervertebral disc degeneration, thoracic region; M47.814 Spondylosis without myelopathy or radiculopathy, thoracic region; M51.36 Other intervertebral disc degeneration, lumbar region; M47.816 Spondylosis without myelopathy or radiculopathy, lumbar region
CPT/HCPCS: 72072; 72110

== ENCOUNTER → 2023-07-18 13:35 | Outpatient (CLI) | payer MEDICARE, SELFPAY ==
[2020-09-03 20:04] VITALS: BMI 25.0
[2023-07-18 14:53] LABS: Add Manual Diff / Slide Review NO; Basophils Absolute Auto 0 /uL (0-100); Basophils Percent Auto 0.5 % (0-2); Eosinophils Absolute Auto 300 /uL (0-450); Eosinophils Percent Auto 4.3 % (2-4); Hematocrit 39.9 % (41-53); Hemoglobin 13.8 g/dL (13.5-17.5); Lymphocytes Absolute Auto 2700 /uL (1100-4500); Lymphocytes Percent Auto 40.3 % (25-40); Mean Corpuscular HGB Conc 34.5 % (30-36); Mean Corpuscular Hemoglobin 34.2 PG (26-34); Mean Corpuscular Volume 99.1 fL (80-100); Monocytes Absolute Auto 700 /uL (0-900); Neutrophils Absolute Auto 3000 /uL (1500-7000); Neutrophils Percent Auto 44.9 % (50-75); Platelet Count 240 X10^3/uL (150-400); Red Blood Cell Count 4.03 X10^6/uL (4.5-5.9); Red Cell Distribution Width 14.3 % (11.6-14.8); White Blood Cell Count 6.7 X10^3/uL (4.5-11.0)
[2023-07-18 15:08] LABS: HEMOLYSIS < 15 (0-50)
[2023-07-18 15:20] LABS: Alanine Aminotransferase 16 IU/L (<50); Albumin 3.5 g/dL (3.5-5.0); Albumin Globulin Ratio 1.2 (1.0-2.8); Alkaline Phosphatase 68 U/L (38-126); Aspartate Aminotransferase 29 IU/L (17-59); BUN Creatinine Ratio 23.5 (6-22); Bilirubin Total 1.4 mg/dL (0.2-1.3); Blood Urea Nitrogen 19 mg/dL (9-20); Calcium 9.1 mg/dL (8.4-10.2); Carbon Dioxide 23 mmol/L (22-32); Chloride 108 mmol/L (98-107); Estimated Glomerular Filt Rate > 60 mL/min (>60); Globulin 2.9 g/dL (1.7-4.1); Glucose 124 mg/dL (80-110); Sodium 137 mmol/L (137-145); Total Protein 6.4 g/dL (6.3-8.2)
[2023-07-21 12:08] LABS: Prostate Specific Antigen 0.235 ng/mL (0.10-4.00)
== END ==
PROVIDERS: PCP Internal Medicine; Referring Provider Internal Medicine Hematology & Oncology; Visit Provider Internal Medicine Hematology & Oncology
DX: C61 Malignant neoplasm of prostate (principal)
CPT/HCPCS: 36415; 80053; 84153; 85025; 99214

== ENCOUNTER 2023-10-27 07:20 | Outpatient (CLI) | payer MEDICARE, SELFPAY ==
[2020-09-03 20:04] VITALS: BMI 25.0
[2023-10-27 07:50] VITALS: BP 174/88; PULSE 48; RESP 16; TEMP 36.2; O2SAT 98
--- NOTE | 2023-10-27 08:00 | DI.RAD.S_ITS ---
PROCEDURE: PAIN L INTERLAMINAR/CAUDAL INJ INDICATIONS: L5-S1 translaminar BLANCA COMPARISON: [facility], , PAIN L INTERLAMINAR/CAUDAL INJ, 10/28/2022, 14:37. FINDINGS: Fluoroscopic spot filming was performed to verify placement of spinal needles at the L5-S1 level(s), as labeled on the films. Appropriate location(s) of the needle tip(s) was confirmed by injection of iodinated contrast. IMPRESSION: Spinal needle at the L5-S1 level. Please see procedure report for details. Dictated by: Renetta Quevedo M.D. on 10/27/2023 at 21:23 Approved by: Renetta Quevedo M.D. on 10/27/2023 at 21:24
[2023-10-27 08:30] VITALS: BP 166/92; PULSE 47; RESP 11; O2SAT 100
[2023-10-27 08:35] VITALS: BP 172/100; PULSE 49; RESP 14; O2SAT 100
[2023-10-27 08:40] VITALS: BP 172/90; PULSE 49; RESP 21; O2SAT 100
[2023-10-27] MEDS: BETAMETHASONE 30 MG/5 ML MDV 6 MG INJ (08:40)
[2023-10-27] MEDS: BUPIVACAINE 0.25% (PF) VIAL 2 ML INJ (08:41)
[2023-10-27] MEDS: iopamidoL 15 ML VIAL 3 ML INJ (08:41)
[2023-10-27] MEDS: DEXAMETHASONE 10 MG/ML VIAL INJ (08:42)
[2023-10-27 08:50] VITALS: BP 175/88; PULSE 51; RESP 16; O2SAT 99
--- NOTE | 2023-10-27 08:50 | P.PCN_ITS ---
Date/Time/Diagnoses Date of procedure: 10/27/23 Time of procedure: 08:50 Pre-procedure diagnosis: 1. HNP WITH RADICULAR FEATURES, 2. MULTILEVEL CENTRAL STENOSIS, Post-procedure diagnosis: same Procedure Notes Procedure: 1. FLUOROSCOPICALLY GUIDED CONTRAST CONTROLLED INTERLAMINAR EPIDURAL STEROID INJECTION - L5/S1 Indications: Kwame is referred by Dr. Barry for treatment of Bilateral Foraminal Stenosis L>R LE symptoms. Physician: Rayshawn Denton Total Fluoroscopy time (seconds): 14 Total sedation minutes: 0 Complications: none Procedure in detail & Post-procedure care: FINDINGS Multilevel Central Spinal Stenosis with Nerve Root Compression DESCRIPTION OF PROCEDURE Fluoroscopically guided, contrast-controlled L5/S1 translaminar epidural steroid injection. Following review of allergy and review of potential side effects and complications, including, but not necessarily limited to, infection, allergic reaction, local tissue breakdown, temporary as well as permanent nerve injury, paralysis, stroke and possible , the patient indicated that the patient understood and agreed to proceed. An informed consent document was signed by the patient, witnessed by a nurse, and placed in the patient's chart. Additionally, other treatment options including modalities, medications, and physical therapy were reviewed with the patient. After review of previous anaesthesic history and IV conscious sedation the patient was deemed safe to proceed with today?s procedure with IV conscious sedation as ASA class II designation. Safety time-out was performed to confirm p atient ID, procedure to be performed and site of procedure. IV sedation was not administered by the RN after DO order, titrated to patient comfort during the course of the procedure while the patient remained responsive to all verbal commands. In the prone position, following sterile prep and drape of the lumbar region, the L5/S1 translaminar space was identified fluoroscopically. The skin was a nesthetized via a 25-gauge, 1.5-inch needle with 1% lidocaine solution. At this point, a 22-gauge short bevel spinal needle was atraumatically introduced and advanced under fluoroscopic guidance into the region of the L5/S1 translaminar space. Depth was confirmed on lateral view. Radiological data, including multiple fluoroscopic views of the lumbar spine, reveal a spinal needle at the L5/S1 translaminar space. Lateral views then show placement of the needle in the epidural space. Subsequent views show contrast material flowing superiorly and inferiorly in the epidural space. No vascular or intrathecal uptake is observed. At this point, using loss of resistance technique with saline and air, the epidural space was entered. This was confirmed following negative aspiration with injection of approximately 1.5cc of Isovue 200, showing excellent epidural flow without vascular or intrathecal uptake. At this point, 1 cc of 1% lidocaine solution combined with 2cc or 10mg of dexamethasone and 6mg of betamethasone was injected without incident. The patent tolerated the procedure without signs of symptoms of complications prior to transfer to the recovery area for further monitoring. The patient was then transferred to the recovery area where they were observed for an appropriate period of time after the injection. The patient reported a VAS score of 6 prior to the procedure and a post-procedure VAS of 0. POST OP INSTRUCTIONS The patient was provided a Pain Log to continue to record their response to the target-specific procedure prior to follow-up visit with their referring physician. Additionally, specific post-injection care instructions and a contact number to our office were provided if concerns arise regarding possible complications associated with the procedure are suspected.
== END 2023-10-27 09:02 | disposition home or self-care (01) ==
LOC: RAD 07:21
PROVIDERS: PCP Internal Medicine; Referring Provider Physical Medicine & Rehabilitation; Visit Provider Physical Medicine & Rehabilitation
DX: M51.17 Intervertebral disc disorders with radiculopathy, lumbosacral region (principal); M48.07 Spinal stenosis, lumbosacral region
CPT/HCPCS: 62323; J0702; J1100; J3490

== ENCOUNTER → 2023-11-30 12:35 | Outpatient (CLI) | payer MEDICARE, SELFPAY ==
[2020-09-03 20:04] VITALS: BMI 25.0
--- NOTE | 2023-11-30 12:36 | DI.RAD.S_ITS ---
PROCEDURE: XR DEXA AXIAL SKELETON INDICATIONS: F/U ON OSTEOPOROSIS COMPARISON: [facility], CR, XR DEXA AXIAL SKELETON, 12/25/2021, 14:22. FINDINGS: Lumbar Spine: Bone mineral density 1.042 g/cm2, T score 0, previously -0.6, statistically improved. Left Hip: Bone mineral density 0.807 g/cm2, T score -1.1, unchanged. Left Femoral Neck: Bone mineral density 0.623 g/cm2, T score -2, previously -2.1. Right Hip: Bone mineral density 0.771 g/cm2, T score -1.4, unchanged. Right Femoral Neck: Bone mineral density 0.602 g/cm2, T score -2.2, unchanged. Fracture Risk Calculation (when applicable): 10-year fracture risk of a major osteoporotic fracture 31 percent and of a hip fracture 24 percent. (T score greater or equal to -1.0 to: NORMAL) (T score from -1.1 to -2.4: OSTEOPENIA) (T score less than or equal to -2.5: OSTEOPOROSIS) IMPRESSION: Osteopenia. Statistically improved bone mineral density of the lumbar spine. Follow-up guidelines as follows: Osteoporosis: Consider a repeat DEXA and Vertebral Fracture Assessment (VFA) exam in 2 years or sooner if medically necessary, to reassess this patient's status. Osteopenia: Consider a repeat DEXA in 2-3 years to reassess this patient's status, or if there is a new clinical indication. Normal: Consider a repeat DEXA in 5 years or sooner, or if there is a new clinical indication. All treatment decisions require clinical judgment and consideration of individual patient factors, including patient preferences, comorbidities, previous drug use, risk factors not captured in the FRAX model (e.g., frailty, falls, vitamin D deficiency, increased bone turnover, interval significant decline in bone density ) and possible under- or over-estimation of fracture risk by FRAX. In addition, the NOF Guide recommends that FDA-approved medical therapies be considered in postmenopausal women and men age >= 50 years with a: * Hip or vertebral (clinical or morphometric) fracture * T-score of <=-2.5 at the spine or hip * Ten-year fracture probability by FRAX of >= 3% for hip fracture or >=20% for major osteoporotic fracture. People with diagnosed cases of osteoporosis or at high risk for fracture should have regular bone mineral density tests. For patients eligible for Medicare, routine testing is allowed once every 2 years. The testing frequency can be increased to one year for patients who have rapidly progressing disease, those who are receiving or discontinuing medical therapy to restore bone mass, or have additional risk factors. Dictated by: Zachary White M.D. on 11/30/2023 at 16:41 Approved by: Zachary White M.D. on 11/30/2023 at 16:43
== END ==
PROVIDERS: PCP Internal Medicine; Referring Provider Internal Medicine; Visit Provider Internal Medicine
DX: M81.0 Age-related osteoporosis without current pathological fracture (principal)
CPT/HCPCS: 77080

== ENCOUNTER → 2024-07-10 13:31 | Outpatient (CLI) | payer MEDICARE, SELFPAY ==
[2020-09-03 20:04] VITALS: BMI 25.0
--- NOTE | 2024-07-10 13:34 | DI.RAD.S_ITS ---
PROCEDURE: XR LUMBAR SPINE MIN 4V INDICATIONS: lumbar stenosis TECHNIQUE: 5 views of the lumbar spine acquired, including flexion and extension views. COMPARISON: [facility], CR, XR LUMBAR SPINE MIN 4V, 07/12/2023, 12:42. FINDINGS: Lumbar spine curvature and alignment: Moderate levoscoliotic curve of the lower thoracic and upper lumbar spine shows minimal progression since the comparison exam 1 year prior. 7 mm of L2 retrolisthesis is unchanged. Bones: Moderate L1 and mild L2 compression fractures are stable. Disc spaces: Severe L1-2, mild L2-3 L3-4 moderate L4-5 mild L5-S1 degenerative disc disease shows mild progression. Moderate L4-5 L5-S1 degenerative facet disease also noted Soft tissues: No soft tissue swelling, calcification or mass. IMPRESSION: Multilevel degeneration that progressing Moderate L1 and mild L2 compression fractures stable Dictated by: Robin Eaton M.D. on 07/11/2024 at 6:29 Approved by: Robin Eaton M.D. on 07/11/2024 at 6:33
== END ==
PROVIDERS: PCP Internal Medicine; Referring Provider Physical Medicine & Rehabilitation; Visit Provider Physical Medicine & Rehabilitation
DX: M51.26 Other intervertebral disc displacement, lumbar region (principal); M51.27 Other intervertebral disc displacement, lumbosacral region; M47.816 Spondylosis without myelopathy or radiculopathy, lumbar region; M47.817 Spondylosis without myelopathy or radiculopathy, lumbosacral region; M48.56XA Collapsed vertebra, not elsewhere classified, lumbar region, initial encounter for fracture
CPT/HCPCS: 72110

== ENCOUNTER 2024-07-26 07:22 | Outpatient (CLI) | payer MEDICARE, SELFPAY ==
[2020-09-03 20:04] VITALS: BMI 25.0
[2024-07-26] VITALS (10 sets, daily range): BP systolic 129–180; BP diastolic 63–96; PULSE 47–54; RESP 13–18; O2SAT 94–100
[2024-07-26] MEDS: MIDAZOLAM 2 MG/2 ML VIAL 1 MG IV (08:23)
[2024-07-26] MEDS: DEXAMETHASONE 10 MG/ML VIAL INJ (08:31)
[2024-07-26] MEDS: BUPIVACAINE 0.25% (PF) VIAL 2 ML INJ (08:31)
[2024-07-26] MEDS: iopamidoL 15 ML VIAL 3 ML INJ (08:32)
[2024-07-26] MEDS: BETAMETHASONE 30 MG/5 ML MDV 12 MG INJ (08:32)
--- NOTE | 2024-07-26 08:43 | P.PCN_ITS ---
Date/Time/Diagnoses Date of procedure: 07/26/24 Time of procedure: 08:43 Pre-procedure diagnosis: 1. HNP WITH RADICULAR FEATURES, 2. MULTILEVEL CENTRAL STENOSIS, Post-procedure diagnosis: same Procedure Notes Procedure: 1. FLUOROSCOPICALLY GUIDED CONTRAST CONTROLLED INTERLAMINAR EPIDURAL STEROID INJECTION - L5/S1 Indications: Kwame is referred by Dr. Barry for treatment of Bilateral Foraminal Stenosis L>R LE symptoms. Physician: Rayshawn Denton Total Fluoroscopy time (seconds): 9 Total sedation minutes: 14 Complications: none Procedure in detail & Post-procedure care: FINDINGS Multilevel Central Spinal Stenosis with Nerve Root Compression DESCRIPTION OF PROCEDURE Fluoroscopically guided, contrast-controlled L5/S1 translaminar epidural steroid injection. Following review of allergy and review of potential side effects and complications, including, but not necessarily limited to, infection, allergic reaction, local tissue breakdown, temporary as well as permanent nerve injury, paralysis, stroke and possible , the patient indicated that the patient understood and agreed to proceed. An informed consent document was signed by the patient, witnessed by a nurse, and placed in the patient's chart. Additionally, other treatment options including modalities, medications, and physical therapy were reviewed with the patient. After review of previous anaesthesic history and IV conscious sedation the patient was deemed safe to proceed with today?s procedure with IV conscious sedation as ASA class II designation. Safety time-out was performed to confirm p atient ID, procedure to be performed and site of procedure. IV sedation was accomplished with a combination of 1mg of Versed administered by the RN after DO order, titrated to patient comfort during the course of the procedure while the patient remained responsive to all verbal commands. In the prone position, following sterile prep and drape of the lumbar region, the L5/S1 translaminar space was identified fluoroscopically. The skin was anesthetized via a 25-gauge, 1.5-inch needle with 1% lidocaine solution. At this point, a 22-gauge short bevel spinal needle was atraumatically introduced and advanced under fluoroscopic guidance into the region of the L5/S1 translaminar space. Depth was confirmed on lateral view. Radiological data, including multiple fluoroscopic views of the lumbar spine, reveal a spinal needle at the L5/S1 translaminar space. Lateral views then show placement of the needle in the epidural space. Subsequent views show contrast material flowing superiorly and inferiorly in the epidural space. No vascular or intrathecal uptake is observed. At this point, using loss of resistance technique with saline and air, the epidural space was entered. This was confirmed following negative aspiration with injection of approximately 1.5cc of Isovue 200, showing excellent epidural flow without vascular or intrathecal uptake. At this point, 1 cc of 1% lidocaine solution combined with 2cc or 10mg of dexamethasone and 6mg of betamethasone was injected without incident. The patent tolerated the procedure without signs of symptoms of complications prior to transfer to the recovery area for further monitoring. The patient was then transferred to the recovery area where they were observed for an appropriate period of time after the injection. The patient reported a VAS score of 7 prior to the procedure and a post-procedure VAS of 1. POST OP INSTRUCTIONS The patient was provided a Pain Log to continue to record their response to the target-specific procedure prior to follow-up visit with their referring physician. Additionally, specific post-injection care instructions and a contact number to our office were provided if concerns arise regarding possible complications associated with the procedure are suspected.
== END 2024-07-26 11:28 | disposition home or self-care (01) ==
LOC: RAD 07:23
PROVIDERS: PCP Internal Medicine; Referring Provider Physical Medicine & Rehabilitation; Visit Provider Physical Medicine & Rehabilitation
DX: M51.17 Intervertebral disc disorders with radiculopathy, lumbosacral region (principal); M48.07 Spinal stenosis, lumbosacral region
CPT/HCPCS: 62323; 99152; J0702; J1100; J2250; J3490

== ENCOUNTER 2024-10-27 06:37 | Emergency (ER) | payer MEDICARE, SELFPAY ==
[2020-09-03 20:04] VITALS: BMI 25.0
[2024-10-27 06:54] VITALS: BP 159/86; PULSE 58; RESP 18; TEMP 36.4; O2SAT 98; BMI 24.3
--- NOTE | 2024-10-27 07:14 | DI.RAD.S_ITS ---
PROCEDURE: XR CHEST 2V INDICATIONS: cough TECHNIQUE: 2 views of the chest were acquired. COMPARISON: None. FINDINGS: Surgical changes and devices: None. Lungs and pleura: Patchy opacity of the right middle lobe. No dense consolidation. No pleural effusions or pneumothorax. Mediastinum: Mediastinal contours are normal. Heart size is normal. Bones and chest wall: No suspicious bony abnormalities. Soft tissues appear unremarkable. IMPRESSION: Patchy right middle lobe opacity compatible with pneumonia. Recommend follow up chest radiograph 4-6 weeks after treatment to document resolution of findings and/or return to baseline examination. Dictated by: Albert Hull M.D. on 10/27/2024 at 7:48 Approved by: Albert Hull M.D. on 10/27/2024 at 7:49
[2024-10-27 07:59] VITALS: BP 161/78; PULSE 57; O2SAT 94
[2024-10-27 08:00] VITALS: BP 164/80; PULSE 54; O2SAT 96
--- NOTE | 2024-10-27 08:07 | ED.URI ---
HPI - URI/Sore Throat General Chief Complaint: Upper Respiratory Symptoms Stated Complaint: Poss pneumonia; cough 7days Time Seen by Provider: 10/27/24 06:42 Source: patient Mode of arrival: Ambulatory Related Data Home Medications ?Medication ?Instructions ?Recorded ?Confirmed denosumab 60 mg/mL subcutaneous 60 mg SUBCUT [id number] 07/30/22 07/16/24 syringe (Prolia) leuprolide acetate (6 month) 45 mg 45 mg IM [id number] 07/30/22 07/16/24 intramuscular syringe kit (Lupron Depot) losartan 100 mg tablet 100 mg PO DAILY 07/30/22 07/16/24 metoprolol succinate 100 mg 100 mg PO DAILY 07/30/22 07/16/24 tablet,extended release 24 hr levothyroxine 75 mcg tablet 75 mcg PO DAILY 10/18/22 07/16/24 zolpidem 5 mg tablet 5 mg PO BEDTIME 10/18/22 07/16/24 acetaminophen 500 mg tablet 500 mg PO Q6H PRN 07/18/23 07/16/24 (Tylenol Extra Strength) pramipexole 0.5 mg tablet 0.5 mg PO DAILY 10/12/23 07/16/24 atorvastatin 20 mg tablet 10 mg PO BEDTIME 07/16/24 07/16/24 Previous Rx's ?Medication ?Instructions ?Recorded enzalutamide 80 mg tablet 160 mg (2 x 80 mg) PO DAILY 10/11/22 nonmetastatic CRPC #60 tabs Allergies Allergy/AdvReac Type Severity Reaction Status Date / Time No Known Drug Allergies Allergy Verified 07/16/24 08:13 Patient History Medical History Compression fracture of L2 Facet arthropathy, lumbar Herniated nucleus pulposus, L2-3 Herniated nucleus pulposus, L5-S1 Hx of aortic aneurysm Hyperlipidemia Hypertension Hypothyroidism Prostate cancer T12 compression fracture Surgical History History of cataract surgery History of prostate surgery (09/27/11) S/P AAA repair Family History Mother Colon cancer Social History marital status: household members: spouse occupational status: previously employed alcohol intake: current substance use type: does not use alcohol intake frequency: holidays/special occasions only Exam Initial Vital Signs Initial Vital Signs: Vital Signs Temperature 97.5 F L 10/27/24 06:54 Pulse Rate 58 L 10/27/24 06:54 Respiratory Rate 18 10/27/24 06:54 Blood Pressure 159/86 H 10/27/24 06:54 Pulse Oximetry 98 10/27/24 06:54 Oxygen Delivery Method Room Air 10/27/24 06:54 Course Orders Ordered: ED Orders 10/27/24 07:14 Chest [XR chest 2V] Stat Vital Signs Vital signs: Vital Signs - 8 hr 10/27/24 06:54 Temperature 97.5 F L Pulse Rate 58 L Respiratory Rate 18 Blood Pressure 159/86 H Pulse Oximetry 98 Oxygen Delivery Method Room Air Discharge Plan Departure Prescriptions: No Action enzalutamide 80 mg Tablet 160 mg PO DAILY Qty: 60 11RF losartan 100 mg tablet 100 mg PO DAILY metoprolol succinate 100 mg tablet extended release 24 hr 100 mg PO DAILY Prolia 60 mg/mL syringe 60 mg SUBCUT [id number] Lupron Depot (6 Month) 45 mg syringe kit 45 mg IM [id number] pramipexole 0.5 mg tablet 0.5 mg PO DAILY levothyroxine 75 mcg tablet 75 mcg PO DAILY zolpidem 5 mg tablet 5 mg PO BEDTIME atorvastatin 20 mg tablet 10 mg PO BEDTIME acetaminophen [Tylenol Extra Strength] 500 mg tablet 500 mg PO Q6H PRN Referrals: Aydee Barry MD [Primary Care Provider, Internal Medicine]
--- NOTE | 2024-10-27 08:13 | ED.URI ---
HPI - URI/Sore Throat General Chief Complaint: Upper Respiratory Symptoms Stated Complaint: Poss pneumonia; cough 7days Time Seen by Provider: 10/27/24 06:42 Source: patient Mode of arrival: Ambulatory History of Present Illness HPI Narrative: 84-year-old male with a history of prostate cancer has been having a dry incessant cough for the past 2 weeks. He denies any fever chills body aches or other symptoms. His had similar symptoms a week prior to his episode. He denies any sputum production with his cough. Related Data Home Medications ?Medication ?Instructions ?Recorded ?Confirmed denosumab 60 mg/mL subcutaneous 60 mg SUBCUT [id number] 07/30/22 07/16/24 syringe (Prolia) leuprolide acetate (6 month) 45 mg 45 mg IM [id number] 07/30/22 07/16/24 intramuscular syringe kit (Lupron Depot) losartan 100 mg tablet 100 mg PO DAILY 07/30/22 07/16/24 metoprolol succinate 100 mg 100 mg PO DAILY 07/30/22 07/16/24 tablet,extended release 24 hr levothyroxine 75 mcg tablet 75 mcg PO DAILY 10/18/22 07/16/24 zolpidem 5 mg tablet 5 mg PO BEDTIME 10/18/22 07/16/24 acetaminophen 500 mg tablet 500 mg PO Q6H PRN 07/18/23 07/16/24 (Tylenol Extra Strength) pramipexole 0.5 mg tablet 0.5 mg PO DAILY 10/12/23 07/16/24 atorvastatin 20 mg tablet 10 mg PO BEDTIME 07/16/24 07/16/24 Previous Rx's ?Medication ?Instructions ?Recorded enzalutamide 80 mg tablet 160 mg (2 x 80 mg) PO DAILY 10/11/22 nonmetastatic CRPC #60 tabs amoxicillin 500 mg tablet 1,000 mg (2 x 500 mg) PO Q8H #30 10/27/24 tabs azithromycin 250 mg tablet See Rx Instructions PO .COMPLEX #6 10/27/24 (Zithromax Z-Ellis) tabs Allergies Allergy/AdvReac Type Severity Reaction Status Date / Time No Known Drug Allergies Allergy Verified 07/16/24 08:13 Review of Systems Review of Systems ROS Unobtainable: All systems reviewed & are unremarkable except as noted in HPI and below Patient History Medical History Compression fracture of L2 Facet arthropathy, lumbar Herniated nucleus pulposus, L2-3 Herniated nucleus pulposus, L5-S1 Hx of aortic aneurysm Hyperlipidemia Hypertension Hypothyroidism Prostate cancer T12 compression fracture Surgical History History of cataract surgery History of prostate surgery (09/27/11) S/P AAA repair Family History Mother Colon cancer Social History marital status: household members: spouse occupational status: previously employed alcohol intake: current substance use type: does not use alcohol intake frequency: holidays/special occasions only Exam Initial Vital Signs Initial Vital Signs: Vital Signs Temperature 97.5 F L 10/27/24 06:54 Pulse Rate 58 L 10/27/24 06:54 Respiratory Rate 18 10/27/24 06:54 Blood Pressure 159/86 H 10/27/24 06:54 Pulse Oximetry 98 10/27/24 06:54 Oxygen Delivery Method Room Air 10/27/24 06:54 General: Healthy appearing, in no acute distress. Able to give a complete and coherent history. Well-nourished well-developed HEENT: Moist mucous membranes, normal sclera with reactive pupils, Neck: No JVD, supple Respiratory: Lungs are clear to auscultation, no wheezing no rales no rhonchi. Full and symmetrical air movement Cardiac: Regular rate and rhythm no murmurs no bruits Abdomen: Soft, nontender, no rebound or guarding, no flank pain Skin: Warm and dry, no rashes Neurologic: Grossly neurologically intact with no obvious asymmetries or abnormalities Extremities: No trauma, well perfused Psych: Cooperative, appropriate insight and affect Course Orders Ordered: ED Orders 10/27/24 07:14 Chest [XR chest 2V] Stat Vital Signs Vital signs: Vital Signs - 8 hr 10/27/24 06:54 10/27/24 07:59 10/27/24 07:59 Temperature 97.5 F L Pulse Rate 58 L 57 L Respiratory Rate 18 Blood Pressure 159/86 H 161/78 H Pulse Oximetry 98 94 Oxygen Delivery Method Room Air 10/27/24 08:00 07/19/25 08:00 Temperature Pulse Rate 54 L Respiratory Rate Blood Pressure 164/80 H Pulse Oximetry 96 Oxygen Delivery Method MDM - URI/Sore Throat Differential Diagnosis Differential diagnosis: Likely upper respiratory infection, sinusitis, viral infection and influenza MDM Narrative Medical decision making narrative: Chest x-ray showed a right middle lobe pneumonia infection. We will go ahead and cover with double antibiotics of amoxicillin and Z-Ellis. Patient advised to follow up in 2 -3 days if symptoms worsen or shortness of breath worsens. Discharge Plan Departure Patient Disposition: Home Clinical Impression: Pneumonia Qualifiers: Pneumonia type: due to unspecified organism Laterality: right Lung location: middle lobe of lung Qualified Code(s): J18.9 - Pneumonia, unspecified organism Instructions: Pneumonia-Adult Activity Restrictions/Additional Instructions: f/up in 2 days if not improved or more sob Prescriptions: New amoxicillin 500 mg tablet 1,000 mg PO Q8H Qty: 30 0RF azithromycin [Zithromax Z-Ellis] 250 mg tablet See Rx Instructions .ROUTE .COMPLEX Qty: 6 0RF Rx Instructions: For 250 mg dose pack: take 500 mg today (day 1), then 250 mg for 4 days (days 2-5) No Action enzalutamide 80 mg Tablet 160 mg PO DAILY Qty: 60 11RF losartan 100 mg tablet 100 mg PO DAILY metoprolol succinate 100 mg tablet extended release 24 hr 100 mg PO DAILY Prolia 60 mg/mL syringe 60 mg SUBCUT [id number] Lupron Depot (6 Month) 45 mg syringe kit 45 mg IM [id number] pramipexole 0.5 mg tablet 0.5 mg PO DAILY levothyroxine 75 mcg tablet 75 mcg PO DAILY zolpidem 5 mg tablet 5 mg PO BEDTIME atorvastatin 20 mg tablet 10 mg PO BEDTIME acetaminophen [Tylenol Extra Strength] 500 mg tablet 500 mg PO Q6H PRN Referrals: Aydee Barry MD [Primary Care Provider, Internal Medicine] Stand Alone Forms: Patient Portal/API
== END 2024-10-27 08:25 | disposition home or self-care (01) ==
PROVIDERS: Emergency Provider Family Medicine; PCP Internal Medicine; Referring Provider Internal Medicine
DX: J18.9 Pneumonia, unspecified organism (principal); C61 Malignant neoplasm of prostate
CPT/HCPCS: 71046; 99281; 99283

== ENCOUNTER 2024-12-15 16:30 | Emergency (ER) | payer MEDICARE, SELFPAY ==
[2020-09-03 20:04] VITALS: BMI 25.0
[2024-12-15 16:35] VITALS: BP 116/84; PULSE 80; RESP 20; TEMP 37; O2SAT 100; BMI 23.9
--- NOTE | 2024-12-15 16:43 | DI.RAD.S_ITS ---
PROCEDURE: XR HAND LT MIN 3V INDICATIONS: cut with saw TECHNIQUE: 3 views of the hand(s) acquired. COMPARISON: None. FINDINGS: Bones: There is significant bony injury seen involving the distal aspect of the middle phalanx of the 3rd finger, with bony transsection. There is an additional bony injury seen involving the distal interphalangeal joint of the 2nd finger. Soft tissues: Associated soft tissue injury can be seen. IMPRESSION: There is bony transsection of the distal aspect of the middle phalanx of the 3rd finger. Additional bony injury seen involving the distal interphalangeal joint of the 2nd finger. Dictated by: Marcos Saldana M.D. on 12/15/2024 at 16:12 Approved by: Marcos Saldana M.D. on 12/15/2024 at 16:13
--- NOTE | 2024-12-15 17:06 | PC.NURSE ---
Pt reports pain to left hand. Dr Cullen notified. Verbal order received for [place] 5 mg and 800 mg po ibuprofen.
[2024-12-15] MEDS: IBUPROFEN 400 MG TABLET 800 MG PO (17:14)
--- NOTE | 2024-12-15 18:00 | ED.UPPEXIN ---
HPI - Extremity Injury (Upper) General Chief Complaint: Extremity Injury, Upper Stated Complaint: Lt hand laceration Time Seen by Provider: 12/15/24 16:37 Source: patient Mode of arrival: Ambulatory History of Present Illness HPI narrative: Patient is a 84-year-old male past medical history of hypertension, hypothyroidism, presents to the emergency department from home for evaluation of hand laceration, according to patient he was reaching towards the table saw and cut his left index and middle finger, he does not take any blood thinners, he denies any other injuries, Related Data Home Medications ?Medication ?Instructions ?Recorded ?Confirmed denosumab 60 mg/mL subcutaneous 60 mg SUBCUT [id number] 07/30/22 12/03/24 syringe (Prolia) leuprolide acetate (6 month) 45 mg 45 mg IM [id number] 07/30/22 12/03/24 intramuscular syringe kit (Lupron Depot) losartan 100 mg tablet 100 mg PO DAILY 07/30/22 12/03/24 levothyroxine 75 mcg tablet 75 mcg PO DAILY 10/18/22 12/03/24 zolpidem 5 mg tablet 5 mg PO BEDTIME 10/18/22 12/03/24 acetaminophen 500 mg tablet 500 mg PO Q6H PRN 07/18/23 12/03/24 (Tylenol Extra Strength) darolutamide 300 mg tablet (Nubeqa) 300 mg PO BID 11/07/24 12/03/24 gabapentin 300 mg capsule 300 mg PO DAILY 12/03/24 12/03/24 metoprolol succinate 50 mg 50 mg PO DAILY 12/03/24 12/03/24 tablet,extended release 24 hr talazoparib 0.5 mg capsule 0.5 mg PO DAILY 12/03/24 12/03/24 (Talzenna) Allergies Allergy/AdvReac Type Severity Reaction Status Date / Time No Known Drug Allergies Allergy Verified 12/15/24 16:35 Review of Systems Review of Systems Narrative: General: Denies fever, chills, weight loss HEENT: Denies headache, eye drainage, eye irritation, head trauma, sore throat, voice change Cardiovascular: Denies any chest pain, palpitations, tachycardia Respiratory: Denies any shortness of breath, cough, wheeze, stridor GI/: Denies any abdominal pain, nausea, vomiting, diarrhea, bright red blood per rectum, melanotic stools, urinary frequency, urinary retention, dysuria, hematuria MSK: Laceration to the left index and left middle finger Skin: Denies any rashes, lesions, discoloration Neuro: Denies any headache, lightheadedness, dizziness, fainting, weakness Psych: Denies SI/HI Patient History Medical History Compression fracture of L2 Facet arthropathy, lumbar Herniated nucleus pulposus, L2-3 Herniated nucleus pulposus, L5-S1 Hx of aortic aneurysm Hyperlipidemia Hypertension Hypothyroidism Prostate cancer T12 compression fracture Surgical History History of cataract surgery History of prostate surgery (09/27/11) S/P AAA repair Family History Mother Colon cancer Social History marital status: household members: spouse occupational status: previously employed Smoking Status: Never smoker alcohol intake: current substance use type: does not use Smoking Status: Never smoker alcohol intake frequency: holidays/special occasions only Exam Narrative Exam Narrative: General: Cooperative, well-developed, not in acute distress HEENT: Normocephalic, atraumatic, PERRLA, normal sclera, eyelids normal Neck: Active full range of motion, atraumatic Chest: Normal to inspection, negative crepitus, no overlying erythema ecchymosis Respiratory: Normal respiratory effort, not in acute respiratory distress, clear to auscultation bilaterally negative cough, wheeze, tachypnea, rhonchi, rales Cardiology: Regular rate rhythm negative gallop, murmur, rubs GI/: No tenderness to palpation, soft, non rigid, normal to inspection, exam deferred MSK: Patient with partial amputation of the left distal 3rd finger, as well as laceration to the palmar aspect of the distal left index, patient does have dopplerable pulses to both distal aspects, there is bony exposure to the left distal phalanx Skin: No rashes or lesions noted Neuro: Alert awake oriented x3, moves all 4 extremities spontaneously, cranial nerves intact, able to answer all questions appropriately follows commands appropriately Psych: Cooperative, negative suicidal or homicidal ideations Initial Vital Signs Initial Vital Signs: Vital Signs Temperature 98.6 F 12/15/24 16:35 Pulse Rate 80 12/15/24 16:35 Respiratory Rate 20 12/15/24 16:35 Blood Pressure 116/84 12/15/24 16:35 Pulse Oximetry 100 12/15/24 16:35 Oxygen Delivery Method Room Air 12/15/24 16:35 Course Orders Ordered: ED Orders 12/15/24 16:43 XR hand LT min 3V Stat 12/15/24 18:35 CBC Auto Diff [Complete Blood Count AUTO DIFF] Stat CMP [Comprehensive Metabolic Panel] Stat Discontinued Medications Hydrocodone Bitart/Acetaminophen (Hydrocodone/Acet 5/325 Tablet) 1 tab PO NOW ONE Stop: 12/15/24 17:07 Last Admin: 12/15/24 17:13 Dose: 1 tab Documented By: Cefazolin Sodium/Dextrose (Ancef) 100 mls @ 200 mls/hr IV NOW ONE Stop: 12/15/24 18:30 Last Admin: 12/15/24 18:33 Dose: 200 mls/hr Documented By: Ibuprofen (Ibuprofen 400 Mg Tablet) 800 mg PO NOW ONE Stop: 12/15/24 17:07 Last Admin: 12/15/24 17:14 Dose: 800 mg Documented By: Vital Signs Vital signs: Vital Signs - 8 hr 12/15/24 16:35 Temperature 98.6 F Pulse Rate 80 Respiratory Rate 20 Blood Pressure 116/84 Pulse Oximetry 100 Oxygen Delivery Method Room Air MDM - Extremity Injury (Upper) Lab Data 12/15/24 18:35 12/15/24 18:35 Labs: Lab Results 12/15/24 Range/Units 18:35 WBC 6.8 (4.5-11.0) X10^3/uL RBC 3.83 L (4.5-5.9) X10^6/uL Hgb 13.2 L (13.5-17.5) g/dL Hct 37.9 L (41-53) % MCV 99.0 (80-100) fL MCH 34.3 H (26-34) PG MCHC 34.7 (30-36) % RDW 15.5 H (11.6-14.8) % Plt Count 155 (150-400) X10^3/uL Neut % (Auto) 50.0 (50-75) % Lymph % (Auto) 40.1 H (25-40) % [place] % (Auto) 7.4 (3-14) % Eos % (Auto) 1.9 L (2-4) % Baso % (Auto) 0.6 (0-2) % Neut # (Auto) 3400 (7814-2044) /uL Lymph # (Auto) 2700 (2350-8905) /uL [place] # (Auto) 500 (0-900) /uL Eos # (Auto) 100 (0-450) /uL Baso # (Auto) 0 (0-100) /uL Sodium 137 (137-145) mmol/L Potassium 4.4 (3.4-5.1) mmol/L Chloride 104 (98-107) mmol/L Carbon Dioxide 24 (22-32) mmol/L BUN 22 H (9-20) mg/dL Creatinine 0.93 (0.66-1.25) mg/dL Estimated GFR > 60 (>60) mL/min BUN/Creatinine Ratio 23.7 H (6-22) Glucose 118 H (70-99) mg/dL Calcium 9.4 (8.4-10.2) mg/dL Total Bilirubin 1.1 (0.2-1.3) mg/dL AST 28 (17-59) IU/L ALT 14 (<50) IU/L Alkaline Phosphatase 79 (38-126) U/L Total Protein 7.2 (6.3-8.2) g/dL Albumin 4.3 (3.5-5.0) g/dL Globulin 2.9 (1.7-4.1) g/dL Albumin/Globulin Ratio 1.5 (1.0-2.8) Imaging Data Extremity x-ray #1: Radiologist's Impression: [address] [address] XRay Report Signed Patient: Kwame Dowling MR#: [id number] : 1940 Acct:[id number] Age/Sex: 84 / M Date of Service: 12/15/24 Loc: ED Accession Number: [id number] Procedure: XR hand LT min 3V Ordering Provider: Robin Cullen D.O. PROCEDURE: XR HAND LT MIN 3V INDICATIONS: cut with saw TECHNIQUE: 3 views of the hand(s) acquired. COMPARISON: None. FINDINGS: Bones: There is significant bony injury seen involving the distal aspect of the middle phalanx of the 3rd finger, with bony transsection. There is an additional bony injury seen involving the distal interphalangeal joint of the 2nd finger. Soft tissues: Associated soft tissue injury can be seen. IMPRESSION: There is bony transsection of the distal aspect of the middle phalanx of the 3rd finger. Additional bony injury seen involving the distal interphalangeal joint of the 2nd finger. MDM Narrative Medical decision making narrative: 84-year-old male with a past medical history of hypertension hypothyroidism presenting from home for evaluation of laceration to the distal aspects of his 2nd and 3rd digit, states that at around 4:00 pm he was reaching over a table saw and cut the distal aspects of his left 2nd and 3rd digit. He is not on any blood thinners, on exam he has a partial amputation of the left distal 3rd phalanx, however he does have dopplerable pulses to this, there is some bony exposure, he does also have a deep laceration of the left 2nd digit to the distal palmar aspect. Patient states tetanus is up-to-date, 2 g Ancef was ordered. Discussed case with orthopedic surgery who is recommending transfer for higher level of care. Patient is right-hand 1810: Discussed case with Dr. Angelo (ortho) reviewed images, states that given the fact that patient has transsection/partial amputation through the flexor tendon would recommend transfer to higher level of care for evaluation by hand surgeon 1839: Discussed case with transfer center at [facility], states will call back once they are able to review images/case 1924: Case was discussed with hand surgeon Dr. Martínez, she is stating that patient does not require transfer, states that patient should have pulse ox of the distal aspect of the finger and states that if it is significantly decreased patient should actually have a revision amputation of the finger rather than bedside washout and lack repair with outpatient follow up. 1957: Discussed case again with Dr. Martínez given patient now without dopplerable pulse/pulse ox she is now recommending amputation revision of the digit she states that we should reach out to our orthopedist to see if they would be willing to do this however if they do not feel comfortable she states that she would be willing to evaluate the patient. 2004: Discussed case with Dr. Angelo (orthopedist) informed him of the recommendation by hand, he states he does not feel comfortable performing this here at [place] and is recommending patient be evaluated by hand at outside hospital. 2018: Discussed case with Dr. Martínez, accepts the transfer, patient will be sent to be BLS to the ED Discharge Plan Departure Patient Disposition: [facility] Clinical Impression: Partial traumatic amputation of finger through phalanx Prescriptions: No Action losartan 100 mg tablet 100 mg PO DAILY Prolia 60 mg/mL syringe 60 mg SUBCUT [id number] Lupron Depot (6 Month) 45 mg syringe kit 45 mg IM [id number] levothyroxine 75 mcg tablet 75 mcg PO DAILY zolpidem 5 mg tablet 5 mg PO BEDTIME acetaminophen [Tylenol Extra Strength] 500 mg tablet 500 mg PO Q6H PRN metoprolol succinate 50 mg tablet extended release 24 hr 50 mg PO DAILY gabapentin 300 mg capsule 300 mg PO DAILY [place] 0.5 mg capsule 0.5 mg PO DAILY Nubeqa 300 mg tablet 300 mg PO BID Referrals: Aydee Barry MD [Primary Care Provider, Internal Medicine]
--- NOTE | 2024-12-15 18:33 | PC.NURSE ---
Splint placed to left third finger. Pt tolerated fair.
--- NOTE | 2024-12-15 18:44 | PC.WOUNDPHOT ---
Left Hand: Laceration's 12/15/24 Photos taken at 1814
[2024-12-15 18:51] LABS: Add Manual Diff / Slide Review NO; Hematocrit 37.9 % (41-53); Hemoglobin 13.2 g/dL (13.5-17.5); Lymphocytes Absolute Auto 2700 /uL (1100-4500); Mean Corpuscular HGB Conc 34.7 % (30-36); Mean Corpuscular Hemoglobin 34.3 PG (26-34); Mean Corpuscular Volume 99.0 fL (80-100); Platelet Count 155 X10^3/uL (150-400)
[2024-12-15 18:52] LABS: Alanine Aminotransferase 14 IU/L (<50); Albumin 4.3 g/dL (3.5-5.0); Albumin Globulin Ratio 1.5 (1.0-2.8); Alkaline Phosphatase 79 U/L (38-126); Blood Urea Nitrogen 22 mg/dL (9-20); Calcium 9.4 mg/dL (8.4-10.2); Carbon Dioxide 24 mmol/L (22-32); Chloride 104 mmol/L (98-107); Estimated Glomerular Filt Rate > 60 mL/min (>60); Globulin 2.9 g/dL (1.7-4.1); Glucose 118 mg/dL (70-99); HEMOLYSIS < 15 (0-50); Potassium 4.4 mmol/L (3.4-5.1); Sodium 137 mmol/L (137-145); Total Protein 7.2 g/dL (6.3-8.2)
--- NOTE | 2024-12-15 19:59 | PC.NURSE ---
O2 sat to left middle finger did not read. Nail bed to same finger is bluish lundy and cold.
[2024-12-15 20:40] VITALS: BP 128/74; PULSE 70; O2SAT 99
[2024-12-15 21:00] VITALS: BP 119/84; PULSE 62; O2SAT 100
== END 2024-12-15 21:23 | disposition short-term general hospital (02) ==
PROVIDERS: Emergency Provider Student in an Organized Health Care Education/Training Program; PCP Internal Medicine
DX: S68.123A Partial traumatic metacarpophalangeal amputation of left middle finger, initial encounter (principal); S61.211A Laceration without foreign body of left index finger without damage to nail, initial encounter; W27.0XXA Contact with workbench tool, initial encounter
CPT/HCPCS: 36415; 73130; 80053; 85025; 96365; 99284; J0689

== ENCOUNTER 2024-12-25 07:44 | Outpatient (CLI) | payer MEDICARE, SELFPAY ==
[2020-09-03 20:04] VITALS: BMI 25.0
[2024-12-25] VITALS (12 sets, daily range): BP systolic 126–174; BP diastolic 70–92; PULSE 52–61; RESP 16–22; TEMP 36.6; O2SAT 96–100
[2024-12-25] MEDS: MIDAZOLAM 2 MG/2 ML VIAL IV (08:38)
[2024-12-25] MEDS: LIDOCAINE 1% 20 ML 5 ML INJ (08:46)
[2024-12-25] MEDS: MIDAZOLAM 2 MG/2 ML VIAL 1 MG IV ×2 (08:55→08:58)
--- NOTE | 2024-12-25 09:21 | P.PCN_ITS ---
Date/Time/Diagnoses Date of procedure: 12/25/24 Time of procedure: 09:21 Pre-procedure diagnosis: 1. RECALCITRANT FACET ARTHROPATHY Post-procedure diagnosis: same Procedure Notes Procedure: 1. BILATERAL L3, L4 AND L5 MEDIAL BRANCH RADIOFREQUENCY NEUROTOMY Indications: Kwame is referred by Dr. Barry for treatment of facet arthropathy. Physician: Rayshawn Denton Total Fluoroscopy time (seconds): 14 Total sedation minutes: 38 Complications: none Procedure in detail & Post-procedure care: DESCRIPTION OF PROCEDURE Bilateral L3, L4 and L5 medial branch radiofrequency neurotomy The patient is well known to this clinic having undergone previous facet injections with good but temporary relief. The patient has experienced appropriate, concordant relief with previous facet and median branch blocks but the patient's pain has been recalcitrant to further conservative measures. Therefore, based upon the patient's relief and persistent symptoms, the patient is considered an appropriate candidate for facet rhizotomy. All of the patient's questions regarding the risks versus benefits of the procedure, including, but not limited to, bleeding, infection, temporary as well as lasting nerve injury, paralysis, stroke, and , as well treatment alternatives were answered to satisfaction. After obtaining informed consent, denial of pertinent drug allergies, as well as being made aware of the potential risks of bleeding, infection, spinal cord trauma, paralysis, temporary and permanent nerve damage, seizure, stroke, and possible , the patient was brought to the fluoroscopy suite and positioned prone on the fluoroscopy table. After review of previous anaesthesic history and IV conscious sedation the patient was deemed safe to proceed with today's procedure with IV conscious sedation as ASA class II designation. Safety time-out was performed to confirm patient ID, procedure to be performed and site of procedure. IV sedation was accomplished with a combination of 4mg of Versed administered by the RN after DO order, titrated to patient comfort during the course of the procedure while the patient remained responsive to all verbal commands. The lumbar region was prepped in usual sterile fashion and covered with a fenestrated drape in the usual sterile fashion. Appropriate monitors applied including pulse oximeter, pulse, and blood pressure for regular monitoring throughout the procedure. After local infiltration using 1% lidocaine, under fluoroscopic guidance, a 10- cm RF insulated needle with a 10-mm active tip was positioned parallel to the junction of the right the superior articulating process where the L5 medial branch resides. Needle placement was confirmed with motor stimulation of .5v on the right which produced local stimulation without radicular component. The stimulation was then increased to 2v with, once again, only local multifidus stimulation without radicular component. The needle was then removed and the identical procedure was performed along the length of the right L4 medial branch with motor stimulation at .7v on the right. The identical procedure was once again performed along the length of the right L3 and medial branch with motor st imulation of .5v on the right. The medial branches were then anesthetised with 0.5% marcaine. This was then followed by two discreet lesions performed at 80 degrees Celsius for 90 seconds each. The identical procedures were repeated on the left. The patient tolerated the procedure well without signs or symptoms of complications prior to transfer to the recovery area continued monitoring without incident. The patient was then transferred to the recovery area where they were observed for an appropriate period of time after the injection. The patient reported a VAS score of 9 prior to the procedure and a post-procedure VAS of 0. POST OP INSTRUCTIONS The patient was provided a Pain Log to continue to record the patient's response to the target-specific procedure prior to the patient's follow-up visit with the referring physician. Additionally, specific post-injection care instructions and a contact number to our office were provided if concerns arise regarding possible complications associated with the procedure are suspected.
== END 2024-12-25 09:33 | disposition home or self-care (01) ==
PROVIDERS: PCP Internal Medicine; Referring Provider Internal Medicine; Visit Provider Physical Medicine & Rehabilitation
DX: M47.816 Spondylosis without myelopathy or radiculopathy, lumbar region (principal)
CPT/HCPCS: 64635; 64636; 99152; 99153; J2250

== ENCOUNTER → 2024-12-27 07:57 | Outpatient (CLI) | payer MEDICARE, SELFPAY ==
[2020-09-03 20:04] VITALS: BMI 25.0
--- NOTE | 2024-12-27 07:59 | DI.ECHO.S_ITS ---
[facility] : : [id number] : : [place] : : [id number] : : Phone: [phone] Echocardiogram Report + + :Name: RAUL TAYLOR Study Date: 12/27/2024 Height: 68 in : :Hospital ReadingLocation: Weight: 160 lb: : Gender: Male BSA: 1.9 m2 : :: 1940 Age: 84 yrs : :Reason For Study: DYSPNEA ON EXERTION : :Ordering Physician: LALY, : :HIRA Performed By: Leyla Jerez : :Referring: HIRA RUFFIN : + + Interpretation Summary The ejection fraction is estimated to be 60-65%. The right ventricle is borderline dilated. There is mild to moderate mitral regurgitation. There is mild tricuspid regurgitation. The right ventricular systolic pressure is estimated to be at least 23 mmHg based on an estimated right atrial pressure of 3 mm Hg. Procedure: A two-dimensional transthoracic echocardiogram with color flow and Doppler was performed. The study quality was technically adequate. Patient has pectus excavatum. Unable to obtain blood pressure. There is no prior echocardiogram noted for this patient. The patient was in sinus rhythm with heart rates between 46-65 bpm during the exam. Left Ventricle: The left ventricle is normal in size and wall thickness. The ejection fraction is estimated to be 60-65%. Left ventricular wall motion is normal. Normal diastolic function. Right Ventricle: The right ventricle is borderline dilated. The right ventricular systolic function is normal. Atria: The left atrial size is normal. Right atrium not well visualized. The right atrium grossly appears normal in size. There is no Doppler evidence for an interatrial shunt. Mitral Valve: The mitral valve leaflets appear mildly thickened. The mitral valve leaflets appear to open well. There is mild to moderate mitral regurgitation. Aortic Valve: The aortic valve is grossly normal. There is mildly reduced leaflet mobility. There is no aortic valve stenosis. No aortic regurgitation is present. Tricuspid Valve: The tricuspid valve leaflets are thin and pliable. There is mild tricuspid regurgitation. The right ventricular systolic pressure is estimated to be at least 23 mmHg based on an estimated right atrial pressure of 3 mm Hg. Pulmonic Valve: The pulmonic valve is not well visualized. There is mild pulmonic regurgitation. Great Vessels: The aortic root is borderline dilated. The ascending aorta is mildly enlarged. The IVC is of normal diameter and collapses greater than 50% with a sniff. This suggests a low right atrial pressure of 3 mm Hg. Pericardium/ Pleura There is no pericardial effusion. There is no pleural effusion. MMode/2D Measurements & Calculations LVIDd: 4.3 cm LVOT diam: 2.2 cm LVIDs: 2.9 cm Ao root diam: 4.2 cm FS: 33.2 % asc Aorta Diam: 3.9 cm IVSd: 0.69 cm Ao Arch Diam (Prox Trans): 2.8 cm LVPWd: 0.74 cm LV anand. diameter/BSA (cm/m^2): 2.3 LV sys. diameter/BSA (cm/m^2): 1.5 LA A2 area: 16.4 cm2 IVC diam: 1.7 cm LA A4 area: 14.3 cm2 LA length (vol): 5.0 cm LA vol: 40.1 ml LA vol index: 21.6 ml/m2 RVD1 (basal): 4.2 cm RVD2 (mid): 3.4 cm TAPSE: 2.3 cm Doppler Measurements & Calculations Ao V2 max: 128.7 cm/sec LVOT Max Charles: 96.8 cm/sec Ao V2 mean: 83.5 cm/sec LV V1 max P.7 mmHg Ao max P.6 mmHg LV V1 VTI: 21.7 cm Ao mean P.2 mmHg EDU(I,D): 2.8 cm2 Ao V2 VTI: 29.8 cm EDU(V,D): 2.9 cm2 sev ratio: 0.73 EDU indexed to BSA (cm^2/m^2): 1.5 MV E max charles: 73.1 cm/sec TR max charles: 223.8 cm/sec MV A max charles: 86.0 cm/sec TR max P.0 mmHg MV E/A: 0.85 PA V2 max: 66.0 cm/sec Med Peak E' Charles: 5.0 cm/sec PA V2 mean: 43.4 cm/sec E/E' med: 14.5 PA mean P.86 mmHg Lat Peak E' Charles: 9.3 cm/sec PA pr(Accel): 33.8 mmHg E/E' lat: 7.9 E/e' average: 11.2 MV dec time: 0.32 sec SV(LVOT): 83.1 ml Reading Physician:05:35 PM
== END ==
PROVIDERS: PCP Internal Medicine; Referring Provider Internal Medicine; Visit Provider Internal Medicine
DX: I08.1 Rheumatic disorders of both mitral and tricuspid valves (principal); R06.09 Other forms of dyspnea; I77.89 Other specified disorders of arteries and arterioles
CPT/HCPCS: 93306